=== PATIENT | male | born 1950 | race Caucasian/White ===

== ENCOUNTER → 2024-03-10 07:39 | Outpatient (REF) | payer MEDICARE, OTHER, SELFPAY | LOC: RAD 07:39 | PROVIDERS: ATTENDING PHYSICIAN Specialist; FAMILY PHYSICIAN Internal Medicine | DX: N28.89 Other specified disorders of kidney and ureter (principal) | CPT/HCPCS: 74170; Q9967 ==

== ENCOUNTER → 2024-05-26 12:31 | Outpatient (REF) | payer MEDICARE, OTHER, SELFPAY | LOC: RAD 12:31 | PROVIDERS: ATTENDING PHYSICIAN Dermatology; FAMILY PHYSICIAN Internal Medicine | DX: Z85.820 Personal history of malignant melanoma of skin (principal) | CPT/HCPCS: 71046 ==

== ENCOUNTER → 2024-06-04 10:15 | Outpatient (REF) | payer MEDICARE, OTHER, SELFPAY | LOC: HWRCS 10:15 | PROVIDERS: ATTENDING PHYSICIAN Internal Medicine Cardiovascular Disease; FAMILY PHYSICIAN Internal Medicine | DX: I51.89 Other ill-defined heart diseases (principal); I35.1 Nonrheumatic aortic (valve) insufficiency | CPT/HCPCS: 93306 ==

== ENCOUNTER → 2024-06-18 12:18 | Outpatient (REF) | payer MEDICARE, OTHER, SELFPAY | LOC: RAD 12:18 | PROVIDERS: ATTENDING PHYSICIAN Hospitalist; FAMILY PHYSICIAN Internal Medicine | DX: M25.561 Pain in right knee (principal) | CPT/HCPCS: 73560 ==

== ENCOUNTER → 2024-08-18 08:32 | Outpatient (REF) | payer MEDICARE, OTHER, SELFPAY | LOC: PAVMRI 08:32 | PROVIDERS: ATTENDING PHYSICIAN Internal Medicine Cardiovascular Disease; FAMILY PHYSICIAN Internal Medicine | DX: I51.7 Cardiomegaly (principal); I10 Essential (primary) hypertension; I25.10 Atherosclerotic heart disease of native coronary artery without angina pectoris; I35.1 Nonrheumatic aortic (valve) insufficiency | CPT/HCPCS: 75561; 75565; A9585 ==

== ENCOUNTER → 2024-08-31 11:17 | Outpatient (REF) | payer MEDICARE, OTHER, SELFPAY | LOC: RAD 11:17 | PROVIDERS: ATTENDING PHYSICIAN Nurse Practitioner | DX: J06.9 Acute upper respiratory infection, unspecified (principal) | CPT/HCPCS: 71046 ==

== ENCOUNTER → 2024-10-22 08:01 | Outpatient (REF) | payer MEDICARE, OTHER, SELFPAY | LOC: RAD 08:01 | PROVIDERS: ATTENDING PHYSICIAN Specialist; FAMILY PHYSICIAN Internal Medicine | DX: N28.89 Other specified disorders of kidney and ureter (principal) | CPT/HCPCS: 74170; Q9967 ==

== ENCOUNTER 2025-06-01 14:07 | Inpatient (IN) | payer MEDICARE, OTHER, SELFPAY ==
[2025-06-01] VITALS (17 sets, daily range): BP systolic 74–109; BP diastolic 54–66; BMI 33.1
[2025-06-01 12:20] LABS: Hematocrit 25.0 % (39.0-52.0); Hemoglobin 8.3 g/dL (13.0-18.0); Mean Corp Hgb Conc. 33.2 g/dL (33.0-37.0); Mean Corpuscular Volume 86.8 fL (80.0-94.0); Nucleated Red Blood Cells % 0 % (-); Platelet Count 152 10^3/uL (130-400); Red Cell Dist. Width 15.4 % (11.5-14.5)
[2025-06-01 12:27] LABS: INR 1.32; PT 16.7 Sec (11.4-14.6)
[2025-06-01 12:28] LABS: APTT 30.2 Sec (23.4-35.0)
--- NOTE | 2025-06-01 12:29 | ED.GENMED ---
History of Present Illness
General
Chief Complaint: Dizziness
Source: patient and spouse
Exam Limitations: none
Time Seen by Provider: 06/01/25 11:39
History of Present Illness
History of Present Illness:
Patient describing exertional right sided chest burning. Resolves when at rest. More recently in the last few days its even occurred at rest. Last episode was walking into the ER. Currently asymptomatic. Also noted a dark stool last evening.
No abdominal pain currently no chest pain or shortness of breath. History of hypertrophic cardiomyopathy.
Past History
Past History
ED Past Medical History: HTN, Other (Hypertrophic cardiomyopathy) and Other (LVH, kidney stones)
ED Past Surgical History: Urological
Patient has exhibited threatening behavior?: No
Social History
Tobacco: Former smoker
Alcohol: Occasional
Drug: None
Personal: Single
Review of Systems
Review of Systems
All Other Systems: Not applicable
Constitutional: Denies fever
ABD/GI: Denies abdominal pain or diarrhea
Phy Exam
Physical Exam
Physical Exam:
GENERAL: Alert and oriented in no apparent distress
EYE: Orbits normal.
NECK: Supple, no significant adenopathy.
ENT: Pharynx without erythema
CARDIAC: Regular rate and rhythm with harsh midsystolic murmur
LUNGS: Clear breath sounds,normal
ABDOMEN: Soft, without focal tenderness or distention. Rectal dark and test obviously positive
NEUROLOGICAL: Alert and oriented , grossly non-focal
SKIN: Warm and dry, no rash or lesion, no discoloration, skin intact.
MUSCULOSKELETAL: No edema,no deformity.Good color
PSYCH: Normal and appropriate interaction.
Course
Orders/Labs/Results
Orders:
Orders
06/01/25 Breakfast
Clear Liquid
At Your Request: Full Participation
Does patient need a safe tray?: No
Comment: no reds
06/01/25 11:31
EKG [Electrocardiogram (*1)] Urgent
Reason for Study: Vertigo / Dizzy
EKG- Treatment ONCE
06/01/25 11:56
Cardiac Monitoring- Treatment ONCE
IV Insert/Care/Rem.- Treatment PRN
Pulse Ox/cont/shift [RESP] Stat
Quantity: 1
06/01/25 11:57
Pantoprazole [Protonix IV] 40 mg IV NOW STA
06/01/25 12:12
Type+Screen Urgent
Complete Blood Count/With Diff Urgent
Comprehensive Metabolic Panel Urgent
Ferritin Urgent
Comment: ADD ON
Folate Urgent
Comment: ADD ON
Iron Urgent
Comment: ADD ON
PTT Urgent
Prothrombin Time Urgent
Total Iron Binding Urgent
Comment: ADD ON
Troponin I Urgent
Vitamin B12 Urgent
Comment: ADD ON
06/01/25 12:33
Pantoprazole [Protonix IV] 40 mg IV NOW STA
06/01/25 12:46
* Blood Bank Products Urgent
Blood Bank Products: *Packed RBC Leuko(PRBC's)
Quantity: 1
Transfuse Today: Yes
Reason: Bleeding
IV Insert/Care/Rem.- Treatment PRN
06/01/25 13:06
Admit/Transfer Patient As Directed
Co-Sign Provider:
Level of Care: Inpatient admission
Assign to:: IMU- Intermediate Care
Physician / Group: savi feliz
Diagnosis: symptomatic anemia GI bleed
Reason for Hospitalization: Gi bleed
Expected length of stay greater than two midnights?: Yes
ELOS- Estimated Length of Stay in days: 3
I certify the patient meets the requirements for IP care: Yes
06/01/25 13:07
PRN Pain Medication Management As Directed
May give lesser potent ordered pain med per pt: Yes
preference::
Protocol:: Medication orders for pain may be administered in a
manner that supports deferring to patient preference
when the pt is:
- Requesting an ordered lesser potent pain medication.
Least to most potent pain medications are defined
as: acetaminophen < NSAID < tramadol < opioids
(morphine, oxycodone, hydromorphone).
- Requesting a lesser dose of the same medication IF
ORDERED.
- Requesting a less intrusive route of administration
if both routes are prescribed by the provider (PO <
IV).
06/01/25 13:08
Code Status As Directed
Resuscitation Status: Full Code
Abnormal Lab Results
06/01/25
12:12
WBC 13.7 H 10^3/uL
(4.8-10.8)
RBC 2.88 L 10^6/uL
(4.70-6.10)
Hgb 8.3 L g/dL
(13.0-18.0)
Hct 25.0 L %
(39.0-52.0)
RDW 15.4 H %
(11.5-14.5)
MPV 11.0 H fL
(7.4-10.4)
Abs Immat Gran (auto) 0.1 H 10^3/uL
(0-0.05)
Absolute Neuts (auto) 11.6 H 10^3/uL
(1.4-6.5)
Absolute Lymphs (auto) 1.0 L 10^3/uL
(1.2-3.4)
Absolute Monos (auto) 0.8 H 10^3/uL
(0.1-0.6)
Immature Gran % 1.0 H %
(0-0.5)
Neutrophils % 84.6 H %
(42.2-75.2)
Lymphocytes % 7.6 L %
(20.5-51.1)
PT 16.7 H Sec
(11.4-14.6)
Potassium 3.4 L mmol/L
(3.5-5.1)
BUN 61 H mg/dl
(9-20)
Creatinine 1.4 H mg/dL
(0.7-1.3)
Glucose 110 H mg/dl
(70-99)
Troponin I 0.118 H* ng/ml
Total Protein 5.7 L g/dl
(6.3-8.2)
Crossmatch IS Only See Detail
06/01/25 12:12
06/01/25 12:12
Vital Signs
Initial and Last Documented VS:
Initial Vital Signs
Temp Pulse Resp BP Pulse Ox
97.5 F 85 18 93/64 100
06/01/25 11:30 06/01/25 11:30 06/01/25 11:30 06/01/25 11:30 06/01/25 11:30
Last Documented Vital Signs
Temp Pulse Resp BP Pulse Ox
97.4 F 84 18 107/64 100
06/01/25 14:50 06/01/25 14:50 06/01/25 14:50 06/01/25 14:50 06/01/25 12:32
MDM/Problems Addressed
Differential Diagnosis Includes:
Patient with heme positive stool. Dark. Likely upper GI bleed. Protonix ordered. Drop in hemoglobin. Likely his cardiac symptoms are related to this issue. Will type and screen and admit to medicine.
*Pulse Oximetry
SaO2: 100
Oxygen Mode of Delivery: Room air
Patient hypoxic: no
*EKG
Interpreted by ED Provider?: Yes
Interpretation: abnormal
Comparison EKG: changes noted
Heart Rate: 89
Rate: normal
Rhythm: sinus
[place]: normal axis
Interval: normal interval
QRS Pattern: left vent hypertrophy
Ischemia: non-specific ST changes
*Pulp Press Tender Interpretation
Rate: normal
Interpretation: normal
Heart Rate: 90
Rhythm: sinus
*Critical Care Note
Total Time (30-74mins, 75-104mins- exclusive of procedures): Not Applicable
Data Reviewed
Review of Other/Old Records Reveals: Labs and Testing
Update Note
Update Note:
Consent signed. Blood pressure 95. With patient being symptomatic with minimal symptoms drop in hemoglobin likely upper GI bleed will give a unit of blood now. Risk-benefit explained to patient and family
ED Attending Note
-
Portions of this chart may have been created with voice recognition software.� Occasional wrong word or��sound alike� substitutions may have occurred due to the inherent limitations of voice recognition software.
Discharge Plan
Departure
Patient Disposition: Admit
Date of Disposition: 06/01/25
Time of Disposition: 12:32
Presentation/result/management discussed w/ accepting MD/DO: Hospitalist
Discharge Problem:
Upper GI bleed, Symptomatic anemia, Hypertrophic cardiomyopathy, Possible unstable angina
Interventions
Interventions:
*Risk Screen - Suicide Last Done: 06/01/25 11:30
*General Assessment Last Done: 06/01/25 11:30
*ED COVID-19 Vaccine History Last Done: 06/01/25 11:30
*ED Influenza Vaccine History Last Done: 06/01/25 11:30
ED- Neurological Assessment Last Done: 06/01/25 12:15
--- NOTE | 2025-06-01 12:30 | HPS.HSE ---
Family Physician
-
Family Physician: Devyn Vicente
Chief Complaint
-
chest burning
dark stool
History of Present Illness
75-year-old male with past medical history for hypertension, kidney stones,cardiomyopathy presented to us with right sided chest burning for past few weeks with exertion, resolved with rest. for past few days, stated burning even with rest. last
evening, he was noted to have dark stool.he is on iron pill for past 90 days. he was nauseous. he felt lightheaded. he is constipated. denied diarrhea or abdominal pain. denied SAMANIEGO. denied sob. denied runny nose, congestion, cough. denied dysuria or
hematuria.
upon arrival noted to have hgb 8.3. IV PPI. transfusing with one unit of blood. admitting for further management.
Medical History
Past Medical History
Past Medical History: Reports Other
Additional Past Medical History:
RCD sleep apnea on CPAP, melanoma, hypertension, BPH, nephro lithiasis, right renal mass bladder perforation,
Past Surgical History: Reports Other
Additional Past Surgical History:
Lithotripsy, lipoma excision, inguinal hernia repair with mesh, TURP, dental implant
Social History
Tobacco: Non-smoker
Alcohol: Occasional
Personal:
Living: With Family
Family History
Family History: Not pertinent
Allergies / Home Medications
Allergies reflects when Allergies were last updated in [facility].
Home Medications with original date entered in [facility]
Allergy/Medication List:
Allergies
Allergy/AdvReac Type Severity Reaction Status Date / Time
iodine Allergy Itching Verified 06/01/25 11:32
hayfever Allergy itchy Uncoded 06/01/25 11:32
eyes,
sneezing
whole wheat Allergy throat Uncoded 06/01/25 11:32
closes,
trouble
breathing,
welts,
tiching
Home Medications
amlodipine 5 mg-olmesartan 20 mg tablet (Miguel) 1 tab PO DAILY 03/30/14
atorvastatin 20 mg tablet 25 mg PO DAILY 04/20/23
metoprolol tartrate 50 mg tablet 100 mg PO DAILY 04/20/23
olmesartan 20 mg tablet (Benicar) 20 mg PO DAILY 04/20/23
diltiazem HCl 180 mg capsule,extended release 24 hr (Cartia XT) 180 mg PO DAILY 06/01/25
ferrous sulfate 325 mg (65 mg iron) tablet (Iron (ferrous sulfate)) 325 mg PO DAILY 06/01/25
tirzepatide (weight loss) 7.5 mg/0.5 mL subcutaneous pen injector (Zepbound) 7.5 mg SC WEEKLY 06/01/25
Review of Systems
-
Constitutional: Reports No Symptoms
EENT: Reports No Symptoms
Respiratory: Reports No Symptoms
Cardiac: Reports Chest Pain
Abdomen/GI: Reports Other (dark stool)
: Reports No Symptoms
Musculoskeletal: Reports No Symptoms
Skin: Reports No Symptoms
Neurological: Reports No Symptoms
Endocrine: Reports No Symptoms
Hematologic/Lymphatic: Reports No Symptoms
Psych: Reports No Symptoms
Physical Exam
Vital Signs
Vital Signs
Temp Pulse Resp BP Pulse Ox
97.5 F 85 18 93/64 100
06/01/25 11:30 06/01/25 11:30 06/01/25 11:30 06/01/25 11:30 06/01/25 11:30
Physical Exam
General: Well Developed, Well Nourished and No Apparent Distress
HEENT: NormoCephalic, Moist mucous membranes and Atraumatic
Respiratory: Clear
Cardiac: S1/S2 and Regular Rhythm; No Murmur or Rub
GI: Soft, Non Tender, Non Distended and Normal Bowel Sounds; No Organomegaly
Rectal: Deferred by Provider
Musculoskeletal: No Clubbing, No Cyanosis and No Edema
Skin: No Rash
Neuro: AO x 3 and Nonfocal/grossly intact
Psych: Calm
Laboratory Results
-
06/01/25 12:12
Laboratory Results
PT 16.7 Sec (11.4-14.6) H 06/01/25 12:12
INR 1.32 06/01/25 12:12
APTT 30.2 Sec (23.4-35.0) 06/01/25 12:12
Data Reviewed
-
Lab Data: Labs Reviewed by me
Impression/Plan
-
# symptomatic Acute blood loss anemia secondary to GI bleed
-hgb 8.3, trend hgb
-IV PPI
-clear liquid diet
-GI consult
#exertional angina r/o NSTEMI
-trop 0.118
-EKG with SINUS RHYTHM WITH PREMATURE ATRIAL COMPLEXES
LEFT VENTRICULAR HYPERTROPHY WITH REPOLARIZATION ABNORMALITY ( R in aVL )
BORDERLINE QT INTERVAL
ANTEROLATERAL INFARCT noted prior
-continue to trend trop
-cardiology consulted
#hypokalemia
-k 3.4, oral kcl
-BMP in am
#NORM likely hypovolemic
-cr 1.4,
-BMP in am
# leukocytosis likely stress reaction
-patient is afebrile, ctm
#HLD
#essential HTN
#cardiomyopathy
-cartia, metoprolol continued with hold parameter
-hold Benicar
#DVT prophylaxis
-scd
#CODe status
-full code
--- NOTE | 2025-06-01 12:31 | W.PN.UPDATE ---
Addendum entered and electronically signed by Fletcher Mathias MD 06/01/25 13:08:
Laboratory Tests
06/01/25
12:12
INR 1.32
Potassium 3.4 L
BUN 61 H
Creatinine 1.4 H
eGFR 52.09
Troponin I 0.118 H*
Elevated TPNI - NIMI vs NSTEMI
Renal insufficiency
- CBC card consult
- Holding ASA
- LOC - upgrade to IMU
Original Note:
Update Note
Progress Note Update
This note serves as an addendum to the H&P by college basketball coach JULIUS�
Missy SHU�
HPI�
75M Former smoker, occasional ETOH, HX HOCM, HTN seen at ER:
- exertional right sided chest burning resolves when at rest.
- More recently in the last few days its even occurred at rest. Last episode was walking into the ER.
- Currently asymptomatic.
- noted a dark stool last evening.
- No abdominal pain currently no chest pain or shortness of breath.
Rectal dark and test obviously positive
PHX; see above
Relevant VS
Temp Pulse Resp BP Pulse Ox
97.5 F 85 18 93/64 100
06/01/25 11:30 06/01/25 11:30 06/01/25 11:30 06/01/25 11:30 06/01/25 12:32
PE
Hypotensive
Gen: NAD
HEENT: anicteric
Neck: supple
Lungs: CTA
Cor: RRR
Abdomen:�soft benign
Rectal dark and test obviously positive by ER attd
COURSE INSTRUCTOR: NFND
MS: no edema
Relevant Data
04/20/23 06/01/25
21:41 12:12
WBC 7.7 13.7 H
Hgb 14.3 8.3 L
MCV 86.8
Plt Count 159 152
PENDING TPNI and CMP upon ER disposition
EKG
SINUS RHYTHM WITH PREMATURE ATRIAL COMPLEXES
LEFT VENTRICULAR HYPERTROPHY WITH REPOLARIZATION ABNORMALITY ( R in aVL )
BORDERLINE QT INTERVAL
ANTEROLATERAL INFARCT noted prior
ABNORMAL ECG
WHEN COMPARED WITH ECG OF 21-Apr-2023 01:01,
PREMATURE ATRIAL COMPLEXES ARE NOW PRESENT
T WAVE INVERSION NOW EVIDENT IN LATERAL LEADS
Confirmed by MD REJI, KATY ([id number]) on 06/01/2025 12:04:45 PM
06/04/24 TTE
1. Mild left ventricular hypertrophy with septal hypertrophy up to 2.1 cm.
Ejection fraction 60-65%. Resting LVOT gradient of 11 mmHg increasing to 54 mmHg with Valsalva
2. Thickened mitral leaflets, mild mitral regurgitation and dilated left atrium
3. Mild aortic stenosis, peak/mean gradient 34/19 mmHg, aortic valve area 1.9 cm2, mild to moderate aortic regurgitation
4. Normal right heart with pulmonary artery systolic pressure 27 mmHg
5. Mildly dilated aortic root and ascending aorta, 4.3 and 4.0 cm
No prior hospitalist admission:
ASSESSMENT & PLAN
Exertional Chest burning received with rest
In association with acute anemia - possible stomatic ??
Underlying mil LVH with septal hypertrophy up to 2.1 cm. LVEF @ resting LVOT gradient of 11 mmHg increasing to 54 mmHg with Valsalva - HOCM ?
- Eval anemia and correct to aim Hgb > 8.5
- Pending TPNI and trend TPNI
- Serial EKG
- c/w Metoprolol - hold id SBP < 110
- Card consult
Acute anemia suspect ACBLA due to HoB POS dark stool GIB
Hypotension
- Hold anti HTN ( Amlodipine, Olmesartan)
- NPO - ok for Meds and sips
- T& C
- 1 unit of PRBC
- PPI gtt
- GI consulted
Hypotension
Benign HTN
- Hold anti HTN ( Amlodipine, Olmesartan) due to SBP < 100
HLD
- on Atorvastatin
DVT Px:SCD
Full code
IP TLM
[2025-06-01 12:42] LABS: ALT (SGPT) 16 U/L (0-50); AST (SGOT) 20 U/L (17-59); Albumin 3.5 g/dl (3.5-5.0); Alkaline Phosphatase 56 U/L (38-126); Blood Urea Nitrogen 61 mg/dl (9-20); Calcium 9.8 mg/dl (8.4-10.2); Carbon Dioxide 24 mmol/L (22-30); Chloride 107 mmol/L (98-107); Glucose 110 mg/dl (70-99); Potassium 3.4 mmol/L (3.5-5.1); Sodium 137 mmol/L (135-145); Total Protein 5.7 g/dl (6.3-8.2); eGFR 52.09
[2025-06-01 12:49] LABS: Troponin I 0.118 ng/ml
[2025-06-01] MEDS: PROTONIX IV 40 MG IV ×2 (13:14→13:15)
--- NOTE | 2025-06-01 13:58 | CON.GI ---
Addendum entered and electronically signed by Trupti Nava MD 06/01/25 19:06:
I saw and examined the patient.
The SPRINKLER WORKER's note was reviewed and I agree with the note.
Comment: This is a pleasant 75-year-old male with significant past medical history as listed below and also has significant cardiac history of cardiomyopathy, asymmetric septal hypertrophy, LV outflow obstruction, aortic stenosis, hypertension,
hyperlipidemia also has history of melanoma, bladder perforation, renal mass, colon polyps, kidney stones, WIL presented to the emergency room with symptom of dark stool yesterday with dizziness. He usually sees technology support analyst at [facility] and had a
cardiac catheterization in April and because of his septal hypertrophy he does have intermittent episodes of dizziness. He says that he saw his flare breaker about 3 months ago and was told his hemoglobin was 10 and he also saw his PCP and was
started on oral iron and was referred to GI but he has not had a chance to follow-up yet. He says he had a hemoglobin repeated 05/20 and was 11.5 per patient and on admission it is 8.3 with an elevated BUN of 61. He did receive 1 unit of packed red
blood cells since admission. He also had mildly elevated troponins and cardiology has been consulted and rectal in the emergency room was dark stool heme positive. He currently denies any abdominal pain. He also started Zepbound about 3 months ago
and lost about 17 pounds on it. He currently denies any chest pain. His last colonoscopy was in [address] Francis and was noted to have diverticulosis and was otherwise normal he never had an endoscopy in the past.
Assessment and plan iron deficiency anemia initially diagnosed about 3 months ago which responded to oral iron but now has acute posthemorrhagic anemia with hemoglobin of 8.3 with an episode of melena overnight. He has not had any further episodes
of melena. Discussed with Dr. Lopez on echocardiogram here she noted that he has moderate MR and they are considering doing a DIPAK tomorrow so will hold on endoscopy till he is optimized and if the endoscopy is negative then will need repeat
colonoscopy and capsule endoscopy. Most likely source of bleeding could be angioectasias in the small bowel or colon, less likely neoplasm vs esophagitis or PUD. Continue PPI, trend HB
Original Note:
Consultation
-
Date/Time Consultation Requested: 06/01/25 1230
Date/Time Consultation Performed: 06/01/25 1330
Requesting Provider: BORA Barbosa
Performing Provider: BORA Argueta, Trupti Nava MD
Reason for Consultation: GI bleeding
Medical History
Chief Complaint / HPI
History of Present Illness:
PT is a 75yo with hx melanoma, bladder perforation, renal mass, HTN, cataracts, diverticulosis, BPH, colon polyps, renal stones, PNA, syncope, sleep apnea, cardiomyopathy with onset of chest pain with exertion and severe fatigue. He also admits to
with dark stools day prior to admission and drop in hbg several months ago with iron use for last 3 months. He has also had progressive chest burning and lightheadedness. He also related nausea and constipation which is attributes to recent
Zepbound use. In review with patient he is noted with prior hbg in January 10.2, 05/20 11.5, then 8.3 on admission with BUN 61. Pt also noted with mild troponin increase with cardiology consult pending. Rectal in ER with dark heme + stool.
Pt currently denies odynophagia, dysphagia, vomiting, abdominal pain, diarrhea, or red stools. Hx Colonoscopy for hx colon polyps last 06/01/25 Francis - Diverticulosis in the sigmoid colon. no prior EGD.
Past Medical History
Past Medical History: Cancer (melanoma ), HTN and Other (bladder perforation with catheter, renal mass, cardiomyopathy, cataracts, diverticulosis, BPH, colon polyps, renal stones, PNA, syncope, sleep apnea )
Past Surgical History: Urological (lithotripsy , TURP) and Other (pilonidal cyst surgery, lipoma excision, inguinal hernia repair lap with mesh, dental implants )
Social History
Tobacco: Former Smoker (distant past )
Alcohol: Occasional
Drug: None
Personal:
Living: With Family
Employment: Employed
Family History
Family History: Other (uncle with PUD, mother with breast Ca, father with brain CA)
Allergies / Home Medications
Allergy/AdvReac Type Severity Reaction Status Date / Time
iodine Allergy Itching Verified 06/01/25 11:32
hayfever Allergy itchy Uncoded 06/01/25 11:32
eyes,
sneezing
whole wheat Allergy throat Uncoded 06/01/25 11:32
closes,
trouble
breathing,
welts,
tiching
�Medication �Instructions �Recorded
atorvastatin 20 mg tablet 40 mg PO QPM 04/20/23
olmesartan 20 mg tablet (Benicar) 20 mg PO QPM 04/20/23
aspirin 81 mg tablet,delayed 81 mg PO HS 06/01/25
release
diltiazem HCl 180 mg 180 mg PO HS 06/01/25
capsule,extended release 24 hr
(Cartia XT)
docusate sodium 100 mg capsule 100 mg PO BID 06/01/25
(Colace)
ferrous sulfate 325 mg (65 mg 325 mg PO DAILY 06/01/25
iron) tablet (Iron (ferrous
sulfate))
metoprolol succinate 100 mg 100 mg PO DAILY 06/01/25
tablet,extended release 24 hr
(Toprol XL)
tirzepatide (weight loss) 7.5 7.5 mg SC FR@1900 06/01/25
mg/0.5 mL subcutaneous pen
injector (Zepbound)
Review of Systems
-
History Source: Patient and Family
Constitutional: Reports Fatigue
EENT: Reports No Symptoms
Cardiac: Reports Chest Pain and Syncope (near syncope )
Abdomen/GI: Reports Nausea and Constipated
: Reports No Symptoms
Musculoskeletal: Reports No Symptoms
Skin: Reports No Symptoms
Neurological: Reports Dizzy and Weakness
Hematologic/Lymphatic: Reports Bleeding (dark stools)
Vital Signs
Temp Pulse Resp BP Pulse Ox
97.6 F 79 19 100/65 100
06/01/25 13:53 06/01/25 13:53 06/01/25 13:53 06/01/25 13:53 06/01/25 12:32
Physical Exam
Exam
General: Well Developed, Well Nourished and No Apparent Distress
HEENT: Normocephalic and Anicteric
Respiratory: Clear
Cardiac: Regular Rhythm and Murmur
GI: Soft, Non Tender and Non Distended
Musculoskeletal: No Clubbing and No Cyanosis
Skin: Warm and Dry
Neuro: Awake, Alert and AO x 3
Psych: Calm
Results
WBC 13.7 10^3/uL (4.8-10.8) H 06/01/25 12:12
Hgb 8.3 g/dL (13.0-18.0) L 06/01/25 12:12
Hct 25.0 % (39.0-52.0) L 06/01/25 12:12
MCV 86.8 fL (80.0-94.0) 06/01/25 12:12
Plt Count 152 10^3/uL (130-400) 06/01/25 12:12
Absolute Neuts (auto) 11.6 10^3/uL (1.4-6.5) H 06/01/25 12:12
PT 16.7 Sec (11.4-14.6) H 06/01/25 12:12
INR 1.32 06/01/25 12:12
APTT 30.2 Sec (23.4-35.0) 06/01/25 12:12
Sodium 137 mmol/L (135-145) 06/01/25 12:12
Potassium 3.4 mmol/L (3.5-5.1) L 06/01/25 12:12
Chloride 107 mmol/L (98-107) 06/01/25 12:12
Carbon Dioxide 24 mmol/L (22-30) 06/01/25 12:12
BUN 61 mg/dl (9-20) H 06/01/25 12:12
Creatinine 1.4 mg/dL (0.7-1.3) H 06/01/25 12:12
Calcium 9.8 mg/dl (8.4-10.2) 06/01/25 12:12
Total Bilirubin 0.7 mg/dl (0.2-1.3) 06/01/25 12:12
AST 20 U/L (17-59) 06/01/25 12:12
ALT 16 U/L (0-50) 06/01/25 12:12
Alkaline Phosphatase 56 U/L (38-126) 06/01/25 12:12
Diagnostic Image Results:
10/22/24 CT Abdomen W/wo Iv Contrast
Stable lateral lower pole left renal hypodense mass measuring 2.4 x 1.5 cm. Additional left renal low-attenuation/cystic lesions are stable.
Stable 10 mm medial lower pole low-attenuation right renal mass. Slightly more inferiorly from this, there is the suggestion of an 8 mm low-attenuation nodule not definitely seen previously. Recommend follow-up in 6 months. Otherwise, additional
tiny low-attenuation/cystic structures appear stable.
No renal or ureteral calculus. No hydronephrosis or obstructive uropathy.
Small stable low-attenuation adrenal nodules, most consistent with benign adenomas.
Minor colonic diverticulosis. No evidence of acute diverticulitis.
Prior GI Procedures:
EGD: none
Colonoscopy: 06/01/25 Francis - Diverticulosis in the sigmoid colon.
- The examination was otherwise normal.
- No specimens collected.
Assessment / Plan
-
PT is a 75yo with hx melanoma, bladder perforation, renal mass, HTN, cataracts, diverticulosis, BPH, colon polyps, renal stones, PNA, syncope, sleep apnea, cardiomyopathy with onset of chest pain with exertion and severe fatigue. He also admits to
with dark stools day prior to admission and drop in hbg several months ago with iron use for last 3 months. He has also had progressive chest burning and lightheadedness. He also related nausea and constipation which is attributes to recent
Zepbound use. In review with patient he is noted with prior hbg in February 09.2, 05/20 11.5, then 8.3 on admission with BUN 61. Pt also noted with mild troponin increase with cardiology consult pending. Rectal in ER with heme + dark stools. Hx
Colonoscopy for hx colon polyps last 06/01/25 Francis - Diverticulosis in the sigmoid colon. no prior EGD.
-anemia with elevated BUN concern for UGI bleed
-chest burning
-dark stool
-exertional chest pain
-hypokalemia
-on chronic Zepbound therapy
other med problems:
- cardiomyopathy
-melanoma
-bladder perforation
- renal mass
- HTN
- cataracts
-diverticulosis
-BPH
-colon polyps
- renal stones
- PNA
- syncope
-sleep apnea
PLAN:
etiology of anemia with dark heme + stools related to upper GI source with elevated BUN and chest burning, esophageal ulcer, esophagitis, PUD, ectasia, mass vs lower or SB bleeding
will need EGD then colon
await cards eval for optimization with mild trop increase and complaint of exertional chest pain
ok for clears diet
trend hbg and stool record
add iron studies
currently for transfusion
cont protonix daily
updated family at bedside
-
-
Thank you for consultation and allowing me to participate in the patient's care. Please call the livestock commission agent GI physician during the after hours with any questions or concerns.
--- NOTE | 2025-06-01 15:13 | EDCM ---
CM reviewed chart and met with pt bedside in ED. Lives with his SO Rosy in 2 story home, 2 JOJO, first floor half bath, full flight to second floor bedroom and full bath.
Independent in ADLs, personal care and ambulation at baseline. no assistive devices, still works and drives.
Has CPAP, no other DME.
Confirms prescription coverage.
No hx VN or SNF.
PCP: Devyn Vicente
Pharmacy: [facility]
Anticipate discharge home, CM will continue to follow for all discharge planning needs.
--- NOTE | 2025-06-01 15:25 | CON.CAR ---
Addendum entered and electronically signed by Katherin Lopez DO 06/02/25 06:47:
Additional history:
-Patient was started on Zepbound in January-March and has lost 16 pounds. He self discontinued his nocturnal CPAP almost 2 months ago.
-Last dose of Zepbound was May 28
-Patient had dental work beginning of May
Addendum entered and electronically signed by Katherin Lopez DO 06/01/25 20:00:
I saw and examined the patient.
The [employer] Officer's note was reviewed and I agree with the note.
Comment: Patient was seen and examined in IMU [id number] after he presented to [facility] emergency department complaining of dark stool with several weeks of right-sided chest burning, progressive dyspnea on exertion and orthopnea. He is on
aspirin 81 mg daily but no other antiplatelet or anticoagulation. In the emergency department, patient was found to have hemoglobin of 8.3 g/dL with leukocytosis 13.7. Platelets 152,000. 84.6% neutrophils. PT/INR 16.7/1.32. Sodium 137,
potassium 3.4, BUN and creatinine 61/1.4. Glucose random only 110. Calcium 9.8. Iron 195, TIBC 326, percent sat 59. Ferritin 15.2. LFTs within normal limits. Initial cardiac troponin 0.118 which increased to 0.180. B12 and folate within
normal limits. Twelve-lead EKG personally reviewed: Sinus rhythm with PACs and LVH. QTc 481 ms. Heme positive stool by ER documentation. Patient has received 1 unit packed red blood cells and started on IV Protonix.
.
Ishaan is a 75-year-old gentleman with significant asymmetric septal hypertrophy/HOCM with severe dynamic LVOT obstruction associated with SHU and previous echocardiograms noting mild mitral regurgitation, mild aortic stenosis and preserved
biventricular systolic function. He is under comanagement of our office with Dr. Green and was recently evaluated with Dr. Adela Pinzon at [facility]. As part of his evaluation at [facility] in April, he had a
diagnosed cardiac catheterization 04/11/2025 as part of evaluation for candidacy of septal ablation. Patient's available records were reviewed and I also discussed over the telephone with Dr. Green and Dr. Adela Pinzon.
.
His cardiac catheterization found patent left main. LAD with 3 medium size diagonal branches and multiple septal branches that wraps around the ventricular apex. There is a 60% focal stenosis in the LAD at the 1 that was IFR positive at 0.84.
RCA/PDA/PL with minor luminal irregularities. Circumflex with 2 large OM's and luminal irregularities. Mildly elevated biventricular filling pressure, RA 10 mmHg, pulmonary capillary wedge pressure 17, LVEDP 22 mmHg with preserved cardiac output
and index. Cardiac output 5.26 L/min, cardiac index by Jelani 2.4 L/min/m�. Mild aortic stenosis with aortic valve mean gradient 8.65 mmHg. No shunts. Mean LVOT 2 gradient 82 mmHg with positive Brockenbrough Quintero Braunwald sign suggestive of
severe dynamic LVOT obstruction. SVR 1217, PVR 0.95 Arroyo units. Prior cardiac MRI 08/20/2024 showed asymmetric left ventricular hypertrophy involving the septum with EF 58%. Mild to moderate AR. Mild eccentric MR. No abnormal enhancement. A
2D echocardiogram was also done recently at the [facility] March 01, 2025 although records are not available for my review�according to Dr. Adela Pinzon he had preserved ejection fraction with severe asymmetric septal hypertrophy with
LVOT obstruction which was dynamic. Mild MR with SHU. Mild . Mild TR. Will obtain records. His preprocedure hemoglobin on April 01, 2025 was 13.7 g/dL with platelets 163,000.
.
He is presently relatively stable with heart rates sinus rhythm in the 80s and blood pressures with maps greater than 65. Telemetry shows PACs but no tacky or bradycardia arrhythmias. Oxygen saturation 97% on room air. He denies fevers. He is
compliant with his medications which includes diltiazem CD1 80 mg nightly, metoprolol succinate 100 mg daily. Olmesartan 20 mg every afternoon. Atorvastatin 40 mg every afternoon. Aspirin 81 mg every afternoon, ferrous sulfate 325 mg daily. He
is also on Zepbound 7.5 mg which he takes on Fridays. He is not on diuretics.
.
His 2D echocardiogram done earlier today was personally reviewed and unfortunately technically difficult. He has normal LV chamber size with moderate concentric left ventricular hypertrophy (1.2cm) and severe asymmetric subaortic septal
hypertrophy(2.3cm). Left ventricular systolic function appears preserved with LV ejection fraction visually estimated greater than 70%. Grade 2 diastolic dysfunction. Aortic valve not well-visualized with leaflet and annular thickening and
calcifications. Unfortunately, aortic valve gradients not obtained due to contamination of jet by mitral regurgitation. Mild�moderate aortic insufficiency. Aortic root dilated at the sinus of Valsalva 4.1 cm, sinotubular junction 3.3 cm.
Proximal ascending aorta 3.9 cm. Normal RV size and systolic function which appears perhaps underfilled. RVS velocity 11.4 cm/s. Normal right atrial dimensions. Tricuspid valve opens normally without prolapse and mild TR. Estimated pulmonary
artery systolic pressure 35-38 mmHg assuming a right atrial pressure of 5 to 8 mmHg. Mitral valve leaflets are thickened with mitral annular calcification. There is significant systolic anterior motion of the mitral valve into the LVOT. There is
an echodensity in the left atrium attached to the anterior mitral leaflet, possible torn chordae tendineae but cannot exclude vegetation. Severe/torrential mitral regurgitation which fills the left atrium. Left atrium is normal in size. Unable to
obtain accurate LVOT gradients due to severe mitral regurgitation. No pericardial effusion
General: Comfortable. No conversational dyspnea. On room air. AAOx3
HEENT:mmm
Respiratory: Bronchovesicular breath sounds, clear with no wheezes or rhonchi. No crackles
Cardiac:Regular. Positive S1-S2. Harsh 3 /6 systolic murmur throughout precordium
GI: Soft, Non Tender, Non Distended and Normal Bowel Sounds
Musculoskeletal:Warm distal extremities. No edema
Skin: No rash
Plan:
Medically complex 75-year-old gentleman with HOCM/asymmetric septal hypertrophy with severe dynamic LVOT obstruction with SHU, single-vessel coronary artery disease with IFR positive LAD lesion near D1 on cardiac catheterization 04/11/2025,
hypertension, mild aortic stenosis, mild mitral regurgitation, dyslipidemia, sleep apnea with nocturnal hypoxemia, obesity, and prior tobacco dependence who presents with symptoms of heart failure and mildly abnormal cardiac troponins found to have
acute iron deficient anemia with dark stools heme positive by ER documentation concerning for upper GI bleed and echocardiogram with new finding of severe mitral regurgitation with significant SHU.
Acute anemia with reports of dark stool, heme positive in the ED concerning for upper GI bleed
-History of iron deficiency anemia previously seen by Dr. Francis as an outpatient with a colonoscopy in 2020 showing diverticulosis and more recently seen in the office by Dr. Ford with plans for colonoscopy not yet completed. He has never had an
upper endoscopy.
- Hb 13.7g/dL 04/01 per BREONNA
-Aspirin discontinued
-GI consulted and discussed case.
-IV PPI
-Follow hemoglobin closely and transfuse as needed. Patient has already received 1 unit packed red blood cells
-N.p.o. after midnight and will discuss timing of procedures including EGD pending clinical stability
Acute severe mitral regurgitation with SHU and known HOCM with asymmetric septal hypertrophy with possible flail chordae versus vegetation on the anterior leaflet.
- Continue beta-caden and calcium channel caden
- Monitor closely for volume overload and decompensation
- Transfuse as needed.
- Blood cultures x 2 sets 30 minutes of ordered
- Discussed case with patient's usual reports analysis manager, Dr. Yeung and Dr. Pinzon. Also reviewed case and TTE with Dr. Bassem Asif.
- Will eventually need DIPAK after GI clears esophagus/stomach with concerns for upper GI bleed.
- Patient had previously been evaluated at [facility] for for possible septal ablation versus myomectomy but was reportedly asymptomatic. Pending DIPAK and clinical course may ultimately need surgical treatment of LVOT
obstruction/HCM, repair of mitral valve and revascularization of LAD.
Single-vessel coronary artery disease by cardiac catheterization at [facility] 04/11/2025 with a 60% lesion at the bifurcation of the LAD to D1 that was IFR positive. Mildly abnormal troponins in the setting of symptomatic anemia and
severe MR Likely represents demand ischemia.
-Twelve-lead EKG without ischemic changes.
-Trend troponins to peak
Will follow with you.
Original Note:
Consultation
Consultation Request
Date/Time Consultation Performed: 06/01/25
Requesting Provider: Dr. Mathias
Performing Provider: Judy Vazquez PA-C for Dr. Lopez
Reason for Consultation: CP
Medical History
-
Chief Complaint: CP, dark stool
History of Present Illness:
Patient is a 75-year-old male with past medical history of asymmetric septal hypertrophy, LV outflow obstruction, aortic stenosis, hypertension, hyperlipidemia who presented to [facility] ER due to complaints of dark stool which started last night. In
addition he reports he has had right sided chest burning for several weeks, mostly with exertion and improving with rest, however also with lying down and improved with sitting up. In addition he has noted dizziness which has been progressive over
the last several weeks as well. He states he is followed at [facility] for hoc with Dr. Pinzon and recently underwent cardiac catheterization 04/11/2025 to evaluate his candidacy for alcohol septal ablation versus open myomectomy. He reports he did not
require any interventions. He has been taking aspirin 81 mg daily. He denies abdominal pain. He has been taking 65 mg of supplemental iron daily, however reports he has skipped some doses due to this causing constipation. On arrival to ER
hemoglobin 8.3, down from prior. Last colonoscopy was 3 years ago and he stated 'looked good'.
PMH:
Asymmetric septal hypertrophy
LV outflow obstruction
Mild aortic stenosis
Hypertension
Hyperlipidemia
BPH
Obesity
Past Medical History
Past Medical History: Other (in HPI)
Social History
Tobacco: Former Smoker
Alcohol: Occasional
Personal: Other (significant other)
Living: With Family
Employment: Employed
Family History
Family History: Cancer
Allergies / Home Medications
Allergy/AdvReac Type Severity Reaction Status Date / Time
iodine Allergy Itching Verified 06/01/25 11:32
hayfever Allergy itchy Uncoded 06/01/25 11:32
eyes,
sneezing
whole wheat Allergy throat Uncoded 06/01/25 11:32
closes,
trouble
breathing,
welts,
tiching
�Medication �Instructions �Recorded �Confirmed �Type
atorvastatin 20 mg tablet 40 mg PO QPM 04/20/23 06/01/25 History
olmesartan 20 mg tablet (Benicar) 20 mg PO QPM 04/20/23 06/01/25 History
aspirin 81 mg tablet,delayed 81 mg PO HS 06/01/25 06/01/25 History
release
diltiazem HCl 180 mg 180 mg PO HS 06/01/25 06/01/25 History
capsule,extended release 24 hr
(Cartia XT)
docusate sodium 100 mg capsule 100 mg PO BID 06/01/25 06/01/25 History
(Colace)
ferrous sulfate 325 mg (65 mg 325 mg PO DAILY 06/01/25 06/01/25 History
iron) tablet (Iron (ferrous
sulfate))
metoprolol succinate 100 mg 100 mg PO DAILY 06/01/25 06/01/25 History
tablet,extended release 24 hr
(Toprol XL)
tirzepatide (weight loss) 7.5 7.5 mg SC FR@1900 06/01/25 06/01/25 History
mg/0.5 mL subcutaneous pen
injector (Zepbound)
Review of Systems
-
History Source: Patient and Family
All other systems: Negative unless noted
Physical Exam
Vital Signs
Temp Pulse Resp BP Pulse Ox
97.4 F 81 22 96/65 98
06/01/25 14:50 06/01/25 15:15 06/01/25 15:15 06/01/25 15:00 06/01/25 15:15
Lab Results
06/01/25 12:12
06/01/25 12:12
Troponin I 0.118 ng/ml H* 06/01/25 12:12
Physical Exam
General: No Apparent Distress and Comfortable
HEENT: Normocephalic, Anicteric and Moist Mucous Membranes
Respiratory: Clear and Non Labored Respirations
Cardiac: S1/S2, Regular Rhythm and Murmur
GI: Soft, Non Tender, Non Distended and Normal Bowel Sounds
Musculoskeletal: No Clubbing, No Cyanosis and No Edema
Skin: Warm and Dry
Neuro: AO x 3
Impression / Plan
-
Primary Street Sweeper: Dr. Yanez
Assessment:
Presentation with dark stool
Acute anemia, suspected UGI bleed
R sided chest pain
Elevated troponin
Asymmetric septal hypertrophy
LV outflow obstruction
Mild aortic stenosis
Hypertension
Hyperlipidemia
BPH
Obesity
Adrenal adenoma
Echo 06/04/2024: Mild LVH with septal hypertrophy up to 2.1 cm, EF 60 to 65%, resting LVOT gradient of 11 mmHg increasing to 54 mmHg with Valsalva, mild MR, dilated LA, mild with peak/mean gradient 34/19 mmHg, mild to moderate AR, normal right
heart with PAP 27 mmHg, mildly dilated aortic root and ascending aorta
Cardiac cath 04/12/25 at [facility]: No evidence of resting pulmonary hypertension, evidence of mild AAS with mean gradient 9 mmHg, mean gradient of 82 mmHg across LVOT suggestive of severe LV outflow tract obstruction, LAD with 3 medium sized diagonal
branches with 60% focal stenosis at D1. iFR of lesion 0.84 which by report was felt to be hemodynamically significant, however no intervention performed
Plan:
-Patient presents with dark stool starting yesterday as well as dizziness and R sided chest discomfort which appears to be becoming more frequent in the last several weeks
-GI following as concern for UGI bleed. hgb 8.3
-on asa 81mg daily as OP
-trop 0.118. currently CP free
-EKG SR with LVH and possible prior anterolateral infarct
-on review of cath report from [facility] dated 04/12/25, noted to have a 60% D1 lesion which was felt to be hemodynamically significant however was not intervened upon. there appears to be discrepancy between patient's understanding of cath results and
cath report findings as patient seems to say lesion was felt to be insignificant. no plan was listed in cath report. cath was completed to assess candidacy for alcohol septal ablation or myomectomy.
-at this point ok to proceed with GI evaluation as planned, at higher cardiac risk due to above however not prohibitive.
-will plan to discuss further cardiac treatment and timing pending results of GI evaluation
-continue OP toprol, lipitor as able. hold OP diltiazem and benicar for now
-consider repeat echo, last from 06/2024 as above
-on zepbound as OP
-d/w patient and significant other at bedside. d/w GI CREDIT CARD ANALYST
Data Reviewed
-
EKG: Tracing Personally Visualized and interpreted
Medical Tests (Nuc Med, Echo etc): Report Reviewed by me
Labs: Labs Reviewed by me
Old Records: Reviewed
[2025-06-01 15:40] LABS: Iron 195 ug/dl (49-181)
[2025-06-01 15:49] LABS: Total Iron Binding Capacity 326 ug/dl (261-462)
[2025-06-01 16:34] LABS: Hematocrit 26.9 % (39.0-52.0); Hemoglobin 8.8 g/dL (13.0-18.0)
[2025-06-01 16:37] LABS: Ferritin 15.2 ng/ml (17.9-464.0)
[2025-06-01 16:56] LABS: Troponin I 0.180 ng/ml
[2025-06-01 17:09] LABS: Folate 5.5 ng/ml (2.76-20); Vitamin B12 298 pg/ml (239-931)
--- NOTE | 2025-06-01 17:27 | PTCARENOTE ---
Rec'd pt on admission from ED. Able to stand to pivot to bed. no complaints of chest pain or abdominal pain. Educated pt on fall risk and to call for assistance as GI bleed patients are at high risk for syncopal episodes. Pt agrees. Vital signs
within normal limits. Assessment completed. oriented to unit.
[2025-06-01] MEDS: LIPITOR 40 MG PO (17:53)
[2025-06-01 21:35] LABS: Troponin I 0.288 ng/ml
[2025-06-01 23:15] LABS: Hematocrit 25.1 % (39.0-52.0); Hemoglobin 8.3 g/dL (13.0-18.0)
[2025-06-01 23:37] LABS: Troponin I 0.273 ng/ml
[2025-06-02] VITALS (24 sets, daily range): BP systolic 66–122; BP diastolic 57–86; PULSE 95–104; BMI 33.0
--- NOTE | 2025-06-02 01:54 | PTCARENOTE ---
Assumed care of patient from dayshift RN. Pt aaox3. SpO2 100% on RA. Sinus arrhythmia with PACs on the monitor. Vitals and assessment as documented. Answered all patients questions in regards to EKGs and lab work (specifically trending troponin). Pt
currently resting in bed asleep with call franks in reach.
[2025-06-02 03:43] LABS: Hematocrit 24.2 % (39.0-52.0); Hemoglobin 7.9 g/dL (13.0-18.0); Mean Corp Hgb Conc. 32.6 g/dL (33.0-37.0); Mean Corpuscular Volume 85.2 fL (80.0-94.0); Platelet Count 127 10^3/uL (130-400); Red Cell Dist. Width 15.8 % (11.5-14.5)
--- NOTE | 2025-06-02 03:57 | W.PN.UPDATE ---
Update Note
Progress Note Update
4 am, Hgb 7.9. Per notes, transfuse to keep Hgb > 8.5. Ordered 1 unit PRBC's to transfuse now.
--- NOTE | 2025-06-02 04:14 | PTCARENOTE ---
Hgb trending down. Most recent Hgb 7.9 and BORA Spear made aware. Rx received for 1u PRBC.
[2025-06-02 04:30] LABS: Blood Urea Nitrogen 57 mg/dl (9-20); Calcium 8.9 mg/dl (8.4-10.2); Carbon Dioxide 23 mmol/L (22-30); Chloride 110 mmol/L (98-107); Estimated Creatinine Clearance 53 ml/min; Glucose 102 mg/dl (70-99); HDL Cholesterol 24 mg/dl; LDL Cholesterol, Calculated 41 mg/dl; Potassium 3.5 mmol/L (3.5-5.1); Sodium 138 mmol/L (135-145); Very Low Density Lipoprotein 36 mg/dl (0-30); eGFR 52.09
[2025-06-02 08:40] LABS: Glycohemoglobin (HgbA1c) 4.6 % (4.0-5.6)
[2025-06-02] MEDS: TOPROL XL 100 MG PO (08:56)
[2025-06-02] MEDS: PROTONIX IV 40 MG IV (08:56)
[2025-06-02] MEDS: NSS (PRESERVATIVE FREE) 10 ML IV (08:56)
--- NOTE | 2025-06-02 09:25 | W.PN.HOSP.TC ---
Today's Communication/Plan
-
Re-check H&H, Goal HGB >8, might need another unit
f/w GI & cardiology recommendations
Given NS bolus, avoid falls
Assessment / Plan
Assessment / Plan
Physical Exam
General: Well Developed, Well Nourished and No Apparent Distress
HEENT: NormoCephalic, Moist mucous membranes and Atraumatic
Respiratory: Clear
Cardiac: S1/S2 , + Murmur
GI: Soft, Non Tender, Non Distended and Normal Bowel Sounds; Obese.
Musculoskeletal: No Clubbing, No Cyanosis and No Edema
: No Enriquez
Skin: No Rash
Neuro: AO x 3 and Nonfocal/grossly intact
Psych: Calm
A/P:
# symptomatic hemorrhagic shock due to Acute blood loss anemia secondary to GI bleed exacerbated by aspirin
-hgb 8.3,
No abdominal pain or vomiting, no rectal bleeding over night
s/p 2 units, recheck H&H
Goal to keep HGB >8 with ACS
-IV PPI
Appreciate GI help
#exertional angina r/o NSTEMI
-trop 0.118 then up to 0.28 then 0.27
No active chest pain
-cardiology consulted
#hypokalemia
-k 3.4, oral kcl
-BMP in am
# Thrombocytopenia
#NORM likely hypovolemic
-cr 1.4,
-BMP in am
# NORM
c/w IVF while hypotension
hold Benicar
Monitor for retention
# leukocytosis likely stress reaction
-patient is afebrile, ctm
#HLD
#essential HTN
#cardiomyopathy
- to hold Cartia,
c/w metoprolol continued with hold parameter
-hold Benicar
#DVT prophylaxis
-scd
#Code status
-full code
Total time spent to see the patient, examine the patient, review data and lab result, discuss treatment plan with patient, nursing staff around 55 minutes
Anticipated Discharge: > 48 hours
Subjective/Interval History
-
Date of Service: June 02, 2025
No chest pain
No abdominal pain
No palpitations
Objective Data
-
Labs:
Laboratory Results
06/01/25 06/02/25 06/02/25
23:01 03:26 09:24
WBC 12.7 H
Hgb 8.3 L 7.9 L Pending
Hct 25.1 L 24.2 L
Plt Count 127 L
Sodium 138
Potassium 3.5
Chloride 110 H
Carbon Dioxide 23
BUN 57 H
Creatinine 1.4 H
Glucose 102 H
Calcium 8.9
Vital Signs:
Vital Signs
Temp Pulse Resp BP Pulse Ox
98.4 F 96 21 109/65 98
06/02/25 08:10 06/02/25 08:56 06/02/25 08:10 06/02/25 08:56 06/02/25 08:05
I&O
06/01/25 06/02/25 06/03/25
06:59 06:59 06:59
Intake Total 980 / 980 250 / 250
Output Total 500 / 500
Balance 480 / 480 250 / 250
[2025-06-02] MEDS: NSS 500 IV (09:40)
--- NOTE | 2025-06-02 09:45 | PTCARENOTE ---
PRBC completed this am- ortho vs taken and relayed to Dr. Louise. IV Bolus initiated.
[2025-06-02 10:25] LABS: Hemoglobin 8.5 g/dL (13.0-18.0)
--- NOTE | 2025-06-02 10:49 | CONSULT.CT ---
Consultation
-
Date/Time Consultation Requested: 06/02/25
Date/Time Consultation Performed: 06/02/25
Requesting Provider: Jairo Green MD
Performing Provider: Radha SAHNI for Antoni Asif MD
Reason for Consultation: MR, from SHU with LVOT obstruction/HCOM
Patient History
Physicians
Family Physician: Devyn Vicente
Outpatient Land Use Planner: Jairo Green ([facility]); Adela Pinzon ([facility])
Inpatient Land Use Planner: [facility]
History of Present Illness
75-year-old male with complex medical history including known asymmetric septal hypertrophy/HOCM with severe dynamic LVOT obstruction and associated SHU, was admitted to [facility] 06/01 with right sided chest pressure, exertional dyspnea, lightheadedness
and dark stool. Aspirin use only. BNP 81275 consistent with demand ischemia/heart failure. Hb 7.9>transfused total 2 PRBC. PPI initiated. New NORM (creat 0.9>1.4), Benicar held. Patient was recently evaluated by Dr. Adela Pinzon and underwent
diagnostic cardiac catheterization 04/11/2025 as part of evaluation for candidacy of (alcohol vs surgical) septal ablation. Cath reported 60% focal LAD. LVEDP 22 and mean LVOT gradient 82 mmHg. TTE from 06/01/25 with preserved EF and severe mitral
regurgitation. Currently pain free and awaiting EGD with gastroenterology.
Pertinent negatives: Denies CVA/TIA, asthma/COPD, thoracic radiation/surgery, dysphagia, varicosities/vein stripping
Past Medical History
Past Medical History: Other
iron deficiency anemia
asymmetric septal hypertrophy/HOCM
dynamic LVOT obstruction with SHU
HTN
HLD
CAD (60% LAD)
mild
mild MR
BPH
R renal mass
Melanoma
WIL with CPAP use
Nephrolithiasis
bladder perforation
Class I obesity (on Zepbound)
Past Surgical History
Past Surgical History: Other
B/L inguinal hernia repair
B/L cataract extraction
melanoma excision on back
TURP
Dental History
routine dental cleaning 1 month ago
Family History
Mother: N/A
Father: N/A
Social History
Alcohol: Occasional
Drug: None
Tobacco: Former Smoker
Personal:
Living: With Spouse
Employment: Retired
Allergies
Allergy/AdvReac Type Severity Reaction Status Date / Time
iodine Allergy Itching Verified 06/01/25 11:32
hayfever Allergy itchy Uncoded 06/01/25 11:32
eyes,
sneezing
whole wheat Allergy throat Uncoded 06/01/25 11:32
closes,
trouble
breathing,
welts,
tiching
Home Medications
�Medication �Instructions �Recorded �Confirmed �Type
atorvastatin 20 mg tablet 40 mg PO QPM High Cholesterol 04/20/23 06/01/25 History
olmesartan 20 mg tablet (Benicar) 20 mg PO QPM Blood Pressure 04/20/23 06/01/25 History
aspirin 81 mg tablet,delayed 81 mg PO HS Blood Clot 06/01/25 06/01/25 History
release Prevention/Tx
diltiazem HCl 180 mg 180 mg PO HS Heart 06/01/25 06/01/25 History
capsule,extended release 24 hr Disease/Condition
(Cartia XT)
docusate sodium 100 mg capsule 100 mg PO BID Constipation 06/01/25 06/01/25 History
(Colace)
ferrous sulfate 325 mg (65 mg 325 mg PO DAILY Supplement 06/01/25 06/01/25 History
iron) tablet (Iron (ferrous
sulfate))
metoprolol succinate 100 mg 100 mg PO DAILY Heart 06/01/25 06/01/25 History
tablet,extended release 24 hr Disease/Condition
(Toprol XL)
tirzepatide (weight loss) 7.5 7.5 mg SC FR@1900 Diabetes 06/01/25 06/01/25 History
mg/0.5 mL subcutaneous pen
injector (Zepbound)
Review of Systems
-
History Source: Patient
General: Reports Weight Loss (intentional 17 pound wt loss with Zepbound x 3 months)
HEENT: Reports No Symptoms
Respiratory: Reports LYMAN
Cardiac: Reports No Symptoms
Abdomen/GI: Reports No Symptoms
: Reports No Symptoms
Musculoskeletal: Reports No Symptoms
Skin: Reports No Symptoms
Neurological: Reports No Symptoms
Vascular: Reports No Symptoms
Physical Exam
Vital Signs
Temp 98.4 F 06/02/25 08:10
Temp route: Oral 06/02/25 08:10
Pulse 96 06/02/25 08:56
Rhythm: Sinus arrhythmia 06/01/25 19:05
With- PAC's 06/01/25 19:05
Resp Rate 21 06/02/25 08:10
Blood pressure 109/65 06/02/25 08:56
Blood pressure extremity used: Right upper arm 06/02/25 08:10
Position: Lying 06/02/25 08:10
MAP (cuff-Angela Monitor) 77 06/02/25 08:05
SaO2 98 06/02/25 08:05
Oxygen Mode of Delivery Room air 06/02/25 01:12
Can the patient verbally communicate their pain? Yes 06/01/25 19:05
Actual Weight 101.2 kg 06/02/25 05:35
Body Mass Index (BMI) 33.0 06/02/25 05:35
Supine- Blood Pressure 109/65 06/02/25 09:07
Supine- Pulse 96 06/02/25 09:07
Sitting- Blood Pressure 91/76 06/02/25 09:07
Sitting- Pulse 100 06/02/25 09:07
Standing- Blood Pressure 66/57 06/02/25 09:07
Standing- Pulse 104 06/02/25 09:07
Blood pressure extremity used: Left upper arm 06/02/25 09:07
Mode BP taken: Automatic 06/02/25 09:07
Labs
06/02/25 10:05
06/02/25 03:26
PT 16.7 Sec (11.4-14.6) H 06/01/25 12:12
APTT 30.2 Sec (23.4-35.0) 06/01/25 12:12
Hemoglobin A1c 4.6 % (4.0-5.6) 06/01/25 16:15
Troponin I 0.273 ng/ml H* 06/01/25 23:01
Lpz-V-Jplrsqspmam Pept 46696 pg/ml 06/01/25 20:34
Qvi-V-Rdhqrxkxyzc Pept Cancelled 06/01/25 20:34
Diagnostic Studies
TTE 06/01/25:
LVEF 65%. Normal left ventricle size and function. Severe asymmetric left ventricular hypertrophy. Septal wall measures 2.3cm. There does appear to be a significant LVOT gradient present with significant turbulence. Stage II diastolic dysfunction.
Right ventricular size and systolic function are within normal limits. Thickened mitral valve leaflets with possible possible torn chordae with severe eccentric mitral regurgitation into pulmonary veins. Systolic anterior motion is also present with
LVOT obstruction. Thickened aortic valve with moderate aortic stenosis and moderate aortic regurgitation. Mean aortic gradient 20 mmHg. A portion of the increased aortic gradient could be from the LVOT obstruction. Mild tricuspid regurgitation.
Estimated pulmonary artery pressure of 32 mmHg assuming a right atrial pressure of 3 mmHg. Aortic root 4.1 cm at sinus of Valsalva and 3.9 cm at ascending aorta.
Exam
General: Well Developed, Well Nourished and No Apparent Distress
HEENT: Normocephalic, Anicteric, Moist Mucous Membranes and PERRLA
Neck: Trachea Midline
Respiratory: Clear
Cardiac: S1/S2 and Murmur (III/ HSM throughout precordium)
GI: Soft, Non Tender, Non Distended and Normal Bowel Sounds
Rectal: Deferred by Provider
Skin: Warm and Dry
Neuro: AO x 3, No Motor Deficits and Nonfocal/Grossly Intact
Extremities: Pulses (+1/4 DP pulses B/L)
Lymph: No Lymphadenopathy
Psych: Calm
Assessment / Plan
-
75 year old male with known asymmetric septal hypertrophy/HOCM with severe dynamic LVOT obstruction and associated SHU, admitted with chest pressure, exertional dyspnea, lightheadedness and dark stool.
Found to have sere mitral regurgitation, moderate aortic stenosis and regurgitation, SHU with LVOT obstruction, acute on chronic anemia and concern for UGI bleed. Known CAD with 60% LAD per cath in April 2025 @ [facility]
- for EGD today
- need DIPAK
- surgeon to review imaging and discuss options with patient/care team
Data Reviewed
-
EKG: Report Reviewed by me and Discussed with Physician
Echo: Report Reviewed by me and Discussed with Physician
Radiology: Report Reviewed by me and Discussed with Physician
Labs: Labs Reviewed by me and Discussed with Physician
[2025-06-02] MEDS: D5/0.9% SODIUM CHLORIDE 1000 IV (13:49)
--- NOTE | 2025-06-02 14:01 | PTCARENOTE ---
Addendum entered by Evelyne Mancia RN 06/02/25 16:25:
Sent to gi lab around 3pm, returned from PACU now. AAO denies pain.
Original Note:
IVF initiated- ortho vs repeated and unchanged this time. NPO status maintained awaiting procedure feedback.
--- NOTE | 2025-06-02 15:11 | W.PN.CARDCBS ---
Today's Communication / Plan
-
Continue supportive care with transfusion
Follow hemoglobin closely.
Continue Toprol-XL and avoid significant tachycardia if possible.
Recommend EGD first to evaluate source of bleeding. Patient is stable for the procedure.
After bleeding has been evaluated we will then make a decision regarding his mitral valve and hypertrophic cardiomyopathy.
Abnormal troponin is likely nonischemic myocardial injury.
Once bleeding source has been identified would likely start gently diuresing.
Impression / Plan
-
Primary Well Service Pump Equipment Operator: Dr. Yanez
Assessment:
Presentation with dark stool
Acute anemia, suspected UGI bleed
R sided chest pain
Elevated troponin
Asymmetric septal hypertrophy
LV outflow obstruction
Mild aortic stenosis
Hypertension
Hyperlipidemia
BPH
Obesity
Adrenal adenoma
Echo 06/04/2024: Mild LVH with septal hypertrophy up to 2.1 cm, EF 60 to 65%, resting LVOT gradient of 11 mmHg increasing to 54 mmHg with Valsalva, mild MR, dilated LA, mild with peak/mean gradient 34/19 mmHg, mild to moderate AR, normal right
heart with PAP 27 mmHg, mildly dilated aortic root and ascending aorta
Echo 06/01/25: EF 65%, severe asymmetric septal hypertrophy of 2.3 cm. Severe eccentric mitral regurgitation with SHU. Moderate aortic stenosis and regurgitation. Mean gradient 20, mild TR PA pressure 32, mildly dilated arctic root
Cardiac cath 04/12/25 at [place]: No evidence of resting pulmonary hypertension, evidence of mild AAS with mean gradient 9 mmHg, mean gradient of 82 mmHg across LVOT suggestive of severe LV outflow tract obstruction, LAD with 3 medium sized diagonal
branches with 60% focal stenosis at D1. iFR of lesion 0.84 which by report was felt to be hemodynamically significant, however no intervention performed
Plan:
- He presents with an acute GI bleed requiring 2 units of blood. Hemoglobin was previously normal and is now in the 7.9-8 range. He is having tarry black stool. Hold aspirin
- He has hypertrophic cardiomyopathy with previous significant gradients and moderate valvular disease. On his echocardiogram today he has severe mitral regurgitation with SHU. It remains unclear whether this is from his hypovolemia/GI bleed or
whether he has new significant mitral valve pathology.
- He was previously scheduled for alcohol septal ablation at the [facility] but this has been on hold after he lost weight with Zepbound.
- Plan would be to proceed with endoscopy/possible colonoscopy to evaluate his source of bleeding first. He is not hypoxic and overall hemodynamically stable.
- Pending the results of his GI evaluation we would then consider further evaluation of his mitral regurgitation either as an inpatient or as an outpatient.
- I discussed this at length with the patient and his family.
- Continue Toprol XL 100 mg daily. If blood pressure remains stable restart diltiazem after endoscopy.
- Goal heart rate would be in the 50 to 60 bpm range assuming blood pressure is stable. Systolic blood pressure currently in the 90s and stable
-He has known coronary artery disease which is being treated conservatively for now. iFR positive diagonal lesion.
-Abnormal troponin is likely nonischemic myocardial injury.
-His proBNP is elevated and we will hold on diuresis for today but likely start in AM.
-Creatinine at 1.4. Continue to follow
- Continue to follow hemoglobin closely.
Progress Note - Well Service Pump Equipment Operator
Subjective
Date of Service: June 02, 2025
Overall he feels well. Denies any significant shortness of breath today. He denies chest pains today. His hemoglobin is improved and up to 8.5.
Objective
Labs:
06/02/25 10:05
06/02/25 03:26
Labs
Hgb 8.5 g/dL (13.0-18.0) L 06/02/25 10:05
Hct 24.2 % (39.0-52.0) L 06/02/25 03:26
Plt Count 127 10^3/uL (130-400) L 06/02/25 03:26
PT 16.7 Sec (11.4-14.6) H 06/01/25 12:12
INR 1.32 06/01/25 12:12
APTT 30.2 Sec (23.4-35.0) 06/01/25 12:12
Sodium 138 mmol/L (135-145) 06/02/25 03:26
Potassium 3.5 mmol/L (3.5-5.1) 06/02/25 03:26
BUN 57 mg/dl (9-20) H 06/02/25 03:26
Creatinine 1.4 mg/dL (0.7-1.3) H 06/02/25 03:26
Glucose 102 mg/dl (70-99) H 06/02/25 03:26
Troponins
06/01/25 06/01/25 06/01/25
12:12 16:15 20:34
Troponin I 0.118 H* 0.180 H* D 0.288 H* D
06/01/25
23:01
Troponin I 0.273 H*
Vital Signs and I&O:
Vital Signs
Temp Pulse Resp BP Pulse Ox
98.4 F 96 21 97/64 98
06/02/25 08:10 06/02/25 14:00 06/02/25 14:00 06/02/25 13:53 06/02/25 08:05
Vital Signs
Temp Pulse Resp BP Pulse Ox
98.4 F 96 21 97/64 98
06/02/25 08:10 06/02/25 14:00 06/02/25 14:00 06/02/25 13:53 06/02/25 08:05
Intake & Output
05/31/25 06/01/25 06/02/25 06/03/25
06:59 06:59 06:59 06:59
Intake Total 980 / 980 250 / 250
Output Total 500 / 500
Balance 480 / 480 250 / 250
Physical Exam
Physical Exam
GEN: No distress, awake, Ox3
HEENT: supple, anicteric, mmm
LUNGS: CTA, no wheezes/rales
CV: Reg, S1/S2, 3/6 syst LSB, no gallop
ABD: soft, BS+, NT/ND
EXT: No edema
NEURO: Gross non-focal
SKIN: No rash
[2025-06-02] MEDS: LIPITOR 40 MG PO (17:26)
--- NOTE | 2025-06-02 17:40 | CM ---
Following up on Patient. RN stated that patient is still being followed by consult services. PT/OT is following.
PLAN: TDB, Ancipitate Home No Needs vs. PT or SNF
[2025-06-03] VITALS (16 sets, daily range): BP systolic 96–148; BP diastolic 65–91; BMI 33.1
[2025-06-03] MEDS: D5/0.9% SODIUM CHLORIDE 1000 IV (02:16)
[2025-06-03 05:23] LABS: Blood Urea Nitrogen 38 mg/dl (9-20); Calcium 8.0 mg/dl (8.4-10.2); Carbon Dioxide 23 mmol/L (22-30); Chloride 117 mmol/L (98-107); Estimated Creatinine Clearance 57 ml/min; Glucose 99 mg/dl (70-99); Hematocrit 22.1 % (39.0-52.0); Hemoglobin 7.2 g/dL (13.0-18.0); Mean Corp Hgb Conc. 32.6 g/dL (33.0-37.0); Mean Corpuscular Volume 86.7 fL (80.0-94.0); Platelet Count 108 10^3/uL (130-400); Potassium 3.3 mmol/L (3.5-5.1); Red Cell Dist. Width 16.0 % (11.5-14.5); Sodium 142 mmol/L (135-145); eGFR 56.93
--- NOTE | 2025-06-03 05:58 | W.PN.UPDATE ---
Update Note
Progress Note Update
AM labs: Hgb 7.2/Hct 22.1. Goal to keep Hgb >8. Ordered 1 unit PRBC's to transfuse now.
Potassium 3.3, ordered supplemental potassium 40 meq PO x 1.
--- NOTE | 2025-06-03 06:00 | PTCARENOTE ---
Hgb dropped to 7.2 on morning labs. Notified LAUNDRY SORTER. 1 unit PRBCs ordered and started on pt. Tolerated 15 minute transfusion check well.
[2025-06-03] MEDS: KCL 40 MEQ PO (06:33)
--- NOTE | 2025-06-03 08:33 | W.PN.GI.CBS2 ---
Today's Communication / Plan
-
Trend hemoglobin
Will schedule for outpatient capsule endoscopy and colonoscopy
Assessment / Plan
-
PT is a 75yo with hx melanoma, bladder perforation, renal mass, HTN, cataracts, diverticulosis, BPH, colon polyps, renal stones, PNA, syncope, sleep apnea, cardiomyopathy with onset of chest pain with exertion and severe fatigue. He also admits to
with dark stools day prior to admission and drop in hbg several months ago with iron use for last 3 months. He has also had progressive chest burning and lightheadedness. He also related nausea and constipation which is attributes to recent
Zepbound use. In review with patient he is noted with prior hbg in February 09.2, 05/20 11.5, then 8.3 on admission with BUN 61. Pt also noted with mild troponin increase with cardiology consult pending. Rectal in ER with heme + dark stools. Hx
Colonoscopy for hx colon polyps last 06/01/25 [facility] - Diverticulosis in the sigmoid colon. no prior EGD.
-anemia with elevated BUN concern for UGI bleed
-chest burning
-dark stool
-exertional chest pain
-hypokalemia
-on chronic Zepbound therapy
other med problems:
- cardiomyopathy
-melanoma
-bladder perforation
- renal mass
- HTN
- cataracts
-diverticulosis
-BPH
-colon polyps
- renal stones
- PNA
- syncope
-sleep apnea
PLAN:
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
s/p enteroscopy 06/02 with active bleeding angioectasias seen in the proximal jejunum which was treated with APC and clip
He is getting 2 units of blood today and received 1 unit 06/02 and 1 unit on 06/01 (total 4 units since admission)
his platelets are also dropping monitor closely
May also need to rule out hemolysis although less likely his bilirubin on admission was normal
If he does have recurrent active bleeding then trasfer to [facility] for inpatient capsule endoscopy and based on that may need upper or lower double-balloon enteroscopy
If no further bleeding and hemoglobin remains stable posttransfusion then will schedule him for outpatient capsule study and most likely will also need a repeat colonoscopy
Continue PPI
trend HB
GI will s/o and will be available as needed
Subjective
Subjective
Date of Service: June 03, 2025
Getting 2 more blood transfusion today, one 06/02 and one 06/01. No melena or rectal bleeding though since admission. Denies any abdominal pain
Objective
Data Reviewed
Laboratory Data:
Laboratory Results
06/03/25 04:49
06/03/25 04:49
Laboratory Results
PT 16.7 Sec (11.4-14.6) H 06/01/25 12:12
INR 1.32 06/01/25 12:12
APTT 30.2 Sec (23.4-35.0) 06/01/25 12:12
Total Bilirubin 0.7 mg/dl (0.2-1.3) 06/01/25 12:12
AST 20 U/L (17-59) 06/01/25 12:12
ALT 16 U/L (0-50) 06/01/25 12:12
Alkaline Phosphatase 56 U/L (38-126) 06/01/25 12:12
Vital Signs and I&O:
Vital Signs
Temp Pulse Resp BP Pulse Ox
98.2 F 86 15 140/75 100
06/03/25 07:13 06/03/25 06:47 06/03/25 06:47 06/03/25 06:47 06/03/25 06:47
I&O
06/02/25 06/03/25 06/04/25
06:59 06:59 06:59
Intake Total 980 / 980 250 / 250
Output Total 500 / 500 2100 / 2100
Balance 480 / 480 -1850 / -1849
Physical Exam
Physical Exam
Cardiology: Normal Sinus Rhythm and Murmur (Systolic murmur)
Pulmonary: Clear
GI: Soft, Non Distended, Non Tender and Normal Bowel Sounds
--- NOTE | 2025-06-03 09:58 | W.PN.HOSP.TC ---
Today's Communication/Plan
-
two units of blood, Lasix in between
Replace K
Assessment / Plan
Assessment / Plan
Physical Exam
General: Well Developed, Well Nourished and No Apparent Distress
HEENT: NormoCephalic, Moist mucous membranes and Atraumatic
Respiratory: Clear
Cardiac: S1/S2 , + Murmur
GI: Soft, Non Tender, Non Distended and Normal Bowel Sounds; Obese.
Musculoskeletal: No Clubbing, No Cyanosis and No Edema
: No Enriquez
Skin: No Rash
Neuro: AO x 3 and Nonfocal/grossly intact
Psych: Calm
A/P:
# symptomatic hemorrhagic shock due to Acute blood loss anemia secondary to GI bleed exacerbated by aspirin
-hgb 8.3, then down to 7, will give another 2 units
s/p 2 units
BP stable, stop IVF
Give Lasix in between two units of blood
s/p enteroscopy 06/02 with active bleeding angiectasias seen in the proximal jejunum which was treated with APC and clip
No abdominal pain or vomiting, no rectal bleeding over night
c/w PPI
Appreciate GI help, recommend capsule endoscopy
#Elevated troponin c/w nonischemic myocardial injury.
-trop 0.118 then up to 0.28 then 0.27
No active chest pain
-cardiology consulted
#hypokalemia
replace
# Hypertrophic CMP
s/p Cath and echo 2024 showed severe LV outflow tract obstruction, moderate / AR, Severe MR.
# Thrombocytopenia
#NORM likely hypovolemic
-cr 1.4,
-BMP in am
# NORM
s/p IVF
Creatinine is coming down
hold Benicar
Monitor for retention
# leukocytosis likely stress reaction
-patient is afebrile, ctm
#HLD
#essential HTN
#cardiomyopathy
- to hold Cartia,
c/w metoprolol continued with hold parameter
-hold Benicar
#DVT prophylaxis
-scd
#Code status
-full code
Total time spent to see the patient, examine the patient, review data and lab result, discuss treatment plan with patient, nursing staff around 55 minutes
Anticipated Discharge: 24 - 48 hours
Subjective/Interval History
-
Date of Service: June 03, 2025
No abd pain
No melena or rectal bleeding
NO N/V
Objective Data
-
Labs:
Laboratory Results
06/03/25
04:49
WBC 7.7
Hgb 7.2 L
Hct 22.1 L
Plt Count 108 L
Sodium 142
Potassium 3.3 L
Chloride 117 H
Carbon Dioxide 23
BUN 38 H
Creatinine 1.3
Glucose 99
Calcium 8.0 L
Vital Signs:
Vital Signs
Temp Pulse Resp BP Pulse Ox
98.1 F 82 16 142/79 100
06/03/25 09:25 06/03/25 09:14 06/03/25 09:14 06/03/25 09:14 06/03/25 06:47
I&O
06/02/25 06/03/25 06/04/25
06:59 06:59 06:59
Intake Total 980 / 980 250 / 250 250 / 250
Output Total 500 / 500 2100 / 2100
Balance 480 / 480 -1850 / -1850 250 / 250
[2025-06-03] MEDS: NSS (PRESERVATIVE FREE) 10 ML IV (11:12)
[2025-06-03] MEDS: PROTONIX IV 40 MG IV (11:12)
[2025-06-03] MEDS: TOPROL XL 100 MG PO (11:12)
[2025-06-03] MEDS: LASIX 20 MG IV (11:13)
[2025-06-03] MEDS: LIPITOR 40 MG PO (17:18)
--- NOTE | 2025-06-03 18:17 | W.PN.CARDCBS ---
Today's Communication / Plan
-
Continue transfusion with IV Lasix.
Blood pressure is overall improved and stable.
Heart rate remains somewhat elevated. Continue Toprol and hopefully restart diltiazem in AM.
Will need repeat transthoracic echo once bleeding stops and volume status is optimized to reassess mitral valve/SHU
Would consider DIPAK at some point if unable to assess mitral valve on transthoracic echo
Abnormal troponin is likely nonischemic myocardial injury
Continue to follow hemoglobin closely.
Discussed with family at length
Impression / Plan
-
Primary Commercial Loan Closer: Dr. Yanez
Assessment:
Presentation with dark stool
Acute anemia, suspected UGI bleed
EGD with duodenal AVMs cauterized.
R sided chest pain
Elevated troponin
Asymmetric septal hypertrophy
LV outflow obstruction
Mild aortic stenosis
Hypertension
Hyperlipidemia
BPH
Obesity
Adrenal adenoma
Echo 06/04/2024: Mild LVH with septal hypertrophy up to 2.1 cm, EF 60 to 65%, resting LVOT gradient of 11 mmHg increasing to 54 mmHg with Valsalva, mild MR, dilated LA, mild with peak/mean gradient 34/19 mmHg, mild to moderate AR, normal right
heart with PAP 27 mmHg, mildly dilated aortic root and ascending aorta
Echo 06/01/25: EF 65%, severe asymmetric septal hypertrophy of 2.3 cm. Severe eccentric mitral regurgitation with SHU. Moderate aortic stenosis and regurgitation. Mean gradient 20, mild TR PA pressure 32, mildly dilated arctic root
Cardiac cath 04/12/25 at [place]: No evidence of resting pulmonary hypertension, evidence of mild AAS with mean gradient 9 mmHg, mean gradient of 82 mmHg across LVOT suggestive of severe LV outflow tract obstruction, LAD with 3 medium sized diagonal
branches with 60% focal stenosis at D1. iFR of lesion 0.84 which by report was felt to be hemodynamically significant, however no intervention performed
Plan:
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 Hopefully this is the source of his bleeding. His hemoglobin dropped down back to 7.2 when he got 2 units of blood today. Lasix given in between the units to help diurese.
- He has hypertrophic cardiomyopathy with previous significant gradients and moderate valvular disease. On his echocardiogram today he has severe mitral regurgitation with SHU. It remains unclear whether this is from his hypovolemia/GI bleed or
whether he has new significant mitral valve pathology.
- He was previously scheduled for alcohol septal ablation at the [facility] but this has been on hold after he lost weight with Zepbound.
- Once his bleeding has stopped we will then pursue a cardiac evaluation. I would recommend a transthoracic echo first to reassess the pathology of his mitral valve. His heart rate is still somewhat tachycardic and hopefully tomorrow we can
restart his diltiazem.
- Continue Toprol XL 100 mg daily.
- Goal heart rate would be in the 50 to 60 bpm range assuming blood pressure is stable. Systolic blood pressure currently in the 90s and stable
-He has known coronary artery disease which is being treated conservatively for now. iFR positive diagonal lesion.
-Abnormal troponin is likely nonischemic myocardial injury.
-His proBNP is elevated and we will hold on diuresis for today but likely start in AM.
-Creatinine is improving and down to 1.3. Continue to follow
- Continue to follow hemoglobin closely.
- Discussed at length with family and gastroenterology
Progress Note - Commercial Loan Closer
Subjective
Date of Service: June 03, 2025
Denies any further tarry stool. Getting transfusion today. Has no chest pains.
Objective
Labs:
06/03/25 04:49
06/03/25 04:49
Labs
Hgb 7.2 g/dL (13.0-18.0) L 06/03/25 04:49
Hct 22.1 % (39.0-52.0) L 06/03/25 04:49
Plt Count 108 10^3/uL (130-400) L 06/03/25 04:49
PT 16.7 Sec (11.4-14.6) H 06/01/25 12:12
INR 1.32 06/01/25 12:12
APTT 30.2 Sec (23.4-35.0) 06/01/25 12:12
Sodium 142 mmol/L (135-145) 06/03/25 04:49
Potassium 3.3 mmol/L (3.5-5.1) L 06/03/25 04:49
BUN 38 mg/dl (9-20) H 06/03/25 04:49
Creatinine 1.3 mg/dL (0.7-1.3) 06/03/25 04:49
Glucose 99 mg/dl (70-99) 06/03/25 04:49
Troponins
06/01/25 06/01/25 06/01/25
12:12 16:15 20:34
Troponin I 0.118 H* 0.180 H* D 0.288 H* D
06/01/25
23:01
Troponin I 0.273 H*
Vital Signs and I&O:
Vital Signs
Temp Pulse Resp BP Pulse Ox
97.7 F 97 20 119/78 100
06/03/25 15:33 06/03/25 14:00 06/03/25 14:00 06/03/25 14:00 06/03/25 06:47
Vital Signs
Temp Pulse Resp BP Pulse Ox
97.7 F 97 20 119/78 100
06/03/25 15:33 06/03/25 14:00 06/03/25 14:00 06/03/25 14:00 06/03/25 06:47
Intake & Output
06/01/25 06/02/25 06/03/25 06/04/25
06:59 06:59 06:59 06:59
Intake Total 980 / 980 250 / 250 500 / 500
Output Total 500 / 500 2100 / 2100
Balance 480 / 480 -1850 / -1850 500 / 500
Physical Exam
Physical Exam
GEN: No distress, awake, Ox3
HEENT: supple, anicteric, mmm
LUNGS: CTA, no wheezes/rales
CV: Reg, S1/S2, 3/6 syst LSB, no gallop
ABD: soft, BS+, NT/ND
EXT: No edema
NEURO: Gross non-focal
SKIN: No rash
--- NOTE | 2025-06-03 18:23 | PTCARENOTE ---
Received 2 unit PRBC this am followed by IV Lasix. 1800 ml urine output. Tolerating po diet, no stools noted. Sat on side of the bed for awhile today - orthostatic vs improved.
[2025-06-03] MEDS: KCL 20 MEQ PO (19:54)
[2025-06-03 20:48] LABS: Hepatitis C Antibody Negative (Negative)
[2025-06-04] VITALS (9 sets, daily range): BP systolic 101–160; BP diastolic 53–98; BMI 32.9
[2025-06-04 05:12] LABS: Blood Urea Nitrogen 28 mg/dl (9-20); Calcium 8.5 mg/dl (8.4-10.2); Carbon Dioxide 23 mmol/L (22-30); Chloride 115 mmol/L (98-107); Estimated Creatinine Clearance 57 ml/min; Glucose 92 mg/dl (70-99); Potassium 3.5 mmol/L (3.5-5.1); Sodium 142 mmol/L (135-145); eGFR 56.93
[2025-06-04 05:37] LABS: Hematocrit 28.1 % (39.0-52.0); Hemoglobin 9.3 g/dL (13.0-18.0); Mean Corp Hgb Conc. 33.1 g/dL (33.0-37.0); Mean Corpuscular Volume 86.7 fL (80.0-94.0); Platelet Count 104 10^3/uL (130-400); Red Cell Dist. Width 16.3 % (11.5-14.5)
[2025-06-04] MEDS: TOPROL XL 100 MG PO (08:06)
[2025-06-04] MEDS: KCL 20 MEQ PO (08:07)
[2025-06-04] MEDS: PROTONIX IV 40 MG IV (08:34)
[2025-06-04] MEDS: NSS (PRESERVATIVE FREE) 10 ML IV (08:35)
--- NOTE | 2025-06-04 09:19 | W.PN.HOSP.TC ---
Addendum entered and electronically signed by Janina Louise MD 06/04/25 15:26:
Addendum
Patient underwent DIPAK without complication. Good improvement in mitral regurgitation. Okay per cardiology to go home.
Patient has been ambulatory in his room without need for bilingual office assistant.
Total discharge time spent to see the patient, examine the patient, review data and lab result, discuss discharge plan with patient, nursing staff around 65 minutes
Original Note:
Today's Communication/Plan
-
Keep NPO for DIPAK
likely dc after
Assessment / Plan
Assessment / Plan
Physical Exam
General: Well Developed, Well Nourished and No Apparent Distress
HEENT: NormoCephalic, Moist mucous membranes and Atraumatic
Respiratory: Clear
Cardiac: S1/S2 , + Murmur
GI: Soft, Non Tender, Non Distended and Normal Bowel Sounds; Obese.
Musculoskeletal: No Clubbing, No Cyanosis and No Edema
: No Enriquez
Skin: No Rash
Neuro: AO x 3 and Nonfocal/grossly intact
Psych: Calm
A/P:
# symptomatic hemorrhagic shock due to Acute blood loss anemia secondary to GI bleed exacerbated by aspirin , resolved.
Stable HGB around 9, s/p 4 units of blood
BP stable, ok to resume BP medications
s/p Lasix in between two units of blood
s/p enteroscopy 06/02 with active bleeding angiectasias seen in the proximal jejunum which was treated with APC and clip
No abdominal pain or vomiting, no rectal bleeding over night
c/w PPI
Appreciate GI help, recommend capsule endoscopy in OP
#Elevated troponin c/w nonischemic myocardial injury.
-trop 0.118 then up to 0.28 then 0.27
No active chest pain
-cardiology consulted
#hypokalemia
replace
# Hypertrophic CMP
s/p Cath and echo 2024 showed severe LV outflow tract obstruction, moderate / AR, Severe MR.
Plan for DIPAK today, Keep NPO
# Thrombocytopenia
#NORM likely hypovolemic
-cr 1.4,
-BMP in am
# NORM
s/p IVF
Creatinine is coming down
hold Benicar
Monitor for retention
# leukocytosis likely stress reaction
-patient is afebrile, ctm
#HLD
#essential HTN
#cardiomyopathy
ok to resume Cartia,
c/w metoprolol continued with hold parameter
-hold Benicar until after finsihing NPO status
#DVT prophylaxis
-scd
#Code status
-full code
Total time spent to see the patient, examine the patient, review data and lab result, discuss treatment plan with patient, nursing staff around 55 minutes
Anticipated Discharge: Within 24 hours
Subjective/Interval History
-
Date of Service: June 04, 2025
No sob
No chest pain
No fevers
Objective Data
-
Labs:
Laboratory Results
06/04/25
04:07
WBC 6.3
Hgb 9.3 L D
Hct 28.1 L
Plt Count 104 L
Sodium 142
Potassium 3.5
Chloride 115 H
Carbon Dioxide 23
BUN 28 H
Creatinine 1.3
Glucose 92
Calcium 8.5
Vital Signs:
Vital Signs
Temp Pulse Resp BP Pulse Ox
98.5 F 87 21 160/79 97
06/04/25 07:20 06/04/25 08:06 06/04/25 08:00 06/04/25 08:06 06/04/25 08:00
I&O
06/03/25 06/04/25 06/05/25
06:59 06:59 06:59
Intake Total 250 / 250 1840 / 1839
Output Total 2099 / 2099 2500 / 2500 500 / 500
Balance -1850 / -1850 -660 / -660 -500 / -500
--- NOTE | 2025-06-04 10:43 | PTCARENOTE ---
Patient transported to cathead worker for DIPAK by cathead worker nurses. Verbal report given to RN.
--- NOTE | 2025-06-04 13:43 | W.PN.CARDCBS ---
Today's Communication / Plan
-
DIPAK shows improvement in mitral regurgitation with no flail segments or torn chordae suggestive of functional mitral regurgitation
Would resume home beta-caden and calcium channel caden
Stable for discharge from my perspective
Impression / Plan
-
Primary Supervisor Plastic Sheets: Dr. Yanez
Assessment:
Presentation with dark stool
Acute anemia, suspected UGI bleed
EGD with duodenal AVMs cauterized.
R sided chest pain
Elevated troponin
Asymmetric septal hypertrophy
LV outflow obstruction
Mild aortic stenosis
Hypertension
Hyperlipidemia
BPH
Obesity
Adrenal adenoma
Echo 06/04/2024: Mild LVH with septal hypertrophy up to 2.1 cm, EF 60 to 65%, resting LVOT gradient of 11 mmHg increasing to 54 mmHg with Valsalva, mild MR, dilated LA, mild with peak/mean gradient 34/19 mmHg, mild to moderate AR, normal right
heart with PAP 27 mmHg, mildly dilated aortic root and ascending aorta
Echo 06/01/25: EF 65%, severe asymmetric septal hypertrophy of 2.3 cm. Severe eccentric mitral regurgitation with SHU. Moderate aortic stenosis and regurgitation. Mean gradient 20, mild TR PA pressure 32, mildly dilated arctic root
Cardiac cath 04/12/25 at [place]: No evidence of resting pulmonary hypertension, evidence of mild AAS with mean gradient 9 mmHg, mean gradient of 82 mmHg across LVOT suggestive of severe LV outflow tract obstruction, LAD with 3 medium sized diagonal
branches with 60% focal stenosis at D1. iFR of lesion 0.84 which by report was felt to be hemodynamically significant, however no intervention performed
Plan:
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 Hopefully this is the source of his bleeding. His hemoglobin dropped down back to 7.2 when he got 2 units of blood today. Lasix given in between the units to help diurese.
-He has hypertrophic cardiomyopathy with previous significant gradients and moderate valvular disease
-He was previously scheduled for alcohol septal ablation at the [facility] but this has been on hold after he lost weight with Zepbound.
-On his TTE earlier this admission mitral regurgitation worsened and was severe with concern for torn chord and flail leaflet
-DIPAK today shows moderate MR with no flail segments or torn chordae suggesting that MR was functional due to hypovolemia
- Continue home Toprol and diltiazem
Stable for discharge from my perspective, outpatient follow-up to be arranged
Progress Note - Supervisor Plastic Sheets
Subjective
Date of Service: June 04, 2025
No acute overnight events. GI bleed has resolved and hemoglobin is trending up. Patient feels well. No chest discomfort, dyspnea/orthopnea/PND or lower extremity edema.
Underwent DIPAK earlier today which was well-tolerated.
Objective
Labs:
06/04/25 04:07
06/04/25 04:07
Labs
Hgb 9.3 g/dL (13.0-18.0) L D 06/04/25 04:07
Hct 28.1 % (39.0-52.0) L 06/04/25 04:07
Plt Count 104 10^3/uL (130-400) L 06/04/25 04:07
PT 16.7 Sec (11.4-14.6) H 06/01/25 12:12
INR 1.32 06/01/25 12:12
APTT 30.2 Sec (23.4-35.0) 06/01/25 12:12
Sodium 142 mmol/L (135-145) 06/04/25 04:07
Potassium 3.5 mmol/L (3.5-5.1) 06/04/25 04:07
BUN 28 mg/dl (9-20) H 06/04/25 04:07
Creatinine 1.3 mg/dL (0.7-1.3) 06/04/25 04:07
Glucose 92 mg/dl (70-99) 06/04/25 04:07
Troponins
06/01/25 06/01/25 06/01/25
16:15 20:34 23:01
Troponin I 0.180 H* D 0.288 H* D 0.273 H*
Vital Signs and I&O:
Vital Signs
Temp Pulse Resp BP Pulse Ox
97.8 F 91 18 160/89 97
06/04/25 09:57 06/04/25 10:02 06/04/25 10:02 06/04/25 10:02 06/04/25 08:00
Vital Signs
Temp Pulse Resp BP Pulse Ox
97.8 F 91 18 160/89 97
06/04/25 09:57 06/04/25 10:02 06/04/25 10:02 06/04/25 10:02 06/04/25 08:00
Intake & Output
06/02/25 06/03/25 06/04/25 06/05/25
06:59 06:59 06:59 06:59
Intake Total 980 / 980 250 / 250 1840 / 1840
Output Total 500 / 500 2100 / 2100 2500 / 2500 500 / 500
Balance 480 / 480 -1850 / -1850 -660 / -660 -500 / -500
Physical Exam
Physical Exam
Gen: NAD, AAOx3
HEENT: NC/AT, sclera anicteric
Neck: No JVD
CV: NL s1/s2, 2/6 JANETTE
Lungs: CTAB
Abd: S/ND
Ext: No LE edema
Skin: Warm, dry
Neuro: Non-focal
--- NOTE | 2025-06-04 15:11 | PTCARENOTE ---
Patient AOx3. Sinus arrhythmia on monitor. BP stable. On RA. Standby assist when ambulating. Call franks within reach, bed in lowest position, and bed of wheels locked.
--- NOTE | 2025-06-04 15:11 | CM ---
Following up on Patient. Patient discharging. PLAN: Home No Needs.
--- NOTE | 2025-06-04 15:13 | W.DCSUMMARY ---
Discharge Summary
Discharge Data
Date of Admission: 06/01/25
Date of Discharge: 06/04/25
-
Pending Results: No
Hospital Course
75 years old male presented to the emergency room with symptom of dark stool with dizziness. Patient reported that his command and control systems integrator informed him that he had anemia about 3 months ago. He saw his PCP and was started on oral iron and was referred
to GI but he did not make a follow-up yet. hemoglobin was 8.3 with an elevated BUN of 61. He was given IVF for low blood pressure and subsequent hemoglobin came down to 7.2. Patient had total of 3 units of RBCs. Patient was evaluated by
gastroenterology. He underwent upper enteroscopy 06/02 with active bleeding angiectasias seen in the proximal jejunum which was treated with APC and clip. Patient did not have recurrent black stools in the hospital. He tolerated diet well. GI
doctor recommended outpatient capsule endoscopy and colonoscopy. He also had mildly elevated troponin with no chest pain. Echo 06/01/25: EF 65%, severe asymmetric septal hypertrophy of 2.3 cm. Severe eccentric mitral regurgitation with SHU.
Moderate aortic stenosis and regurgitation. Mean gradient 20, mild TR PA pressure 32, mildly dilated arctic root. Patient underwent DIPAK that showed improvement in mitral regurgitation with no flail segments or torn chordae suggestive of functional
mitral regurgitation. Route Sales Delivery Driver recommended to resume blood pressure medications as patient's blood pressure started to be elevated. Patient remained hemodynamically stable. He was discharged home in a stable condition.
Discharge Plan
-
Patient Disposition: Home (Routine Discharge)
Discharge Diagnosis/Procedures: Acute blood loss anemia secondary to GI bleeding status post upper enteroscopy and treatment of angiodysplasia. You will need to follow-up with GI for capsule endoscopy.
You were evaluated by cardiology for mitral valve disease. You had transesophageal echocardiogram that showed improvement in mitral regurgitation.
You will need to follow-up with your primary care doctor and recheck your blood count in 1 week.
.
Diet: As tolerated
Blood Work: CBC & BMP in one week
Referrals:
Jairo Yanez MD [Active, Cardiology] - in four to six weeks
Trupti Nava MD [Active, Gastroenterology] - in one to two weeks
Referral Note: You will need to make an appointment for capsule endoscopy and colonoscopy
Devyn Vicente MD [Family Provider, Internal Medicine] - in one to two weeks
Prescriptions:
New
pantoprazole [Protonix] 40 mg tablet,delayed release (DR/EC)
40 mg PO DAILY Qty: 30 0RF
Continued
atorvastatin 20 mg Tablet
40 mg PO QPM
olmesartan [Benicar] 20 mg Tablet
20 mg PO QPM
diltiazem HCl [Cartia XT] 180 mg capsule,extended release 24hr
180 mg PO HS
ferrous sulfate [Iron (ferrous sulfate)] 325 mg (65 mg iron) Tablet
325 mg PO DAILY
Zepbound 7.5 mg/0.5 mL pen injector
7.5 mg SC FR@1900
metoprolol succinate [Toprol XL] 100 mg Tablet Extended Release 24 Hr
100 mg PO DAILY
docusate sodium [Colace] 100 mg Capsule
100 mg PO BID
Held
aspirin 81 mg Tablet,Delayed Release (Dr/Ec)
81 mg PO HS
Hold Instructions: Resume on 06/08/25.
Discharge Orders:
Discharge Patient (As Directed); Ordered 06/04/25
Ordered By: Janina Louise
Discharge Date and Time
Print Language: BULGARIAN
--- NOTE | 2025-06-04 15:46 | PTCARENOTE ---
Patient d/c via wheelchair by patient transport. Belongings sent with patient. IV removed.
== END 2025-06-04 15:46 | disposition home or self-care (01) | DRG 377 ==
LOC: IMU 14:07
PROVIDERS: Internal Medicine Cardiovascular Disease; Registered Nurse; ADMITTING PHYSICIAN Internal Medicine; ATTENDING PHYSICIAN Internal Medicine; CONSULT PHYSICIAN Internal Medicine Cardiovascular Disease; CONSULT PHYSICIAN Internal Medicine Gastroenterology; EMERGENCY PHYSICIAN Emergency Medicine; FAMILY PHYSICIAN Internal Medicine
PROC: 0W3P8ZZ Control Bleeding in Gastrointestinal Tract, Via Natural or Artificial Opening Endoscopic (ICD-10-PCS; 2025-06-01)
PROC: 30233N1 Transfusion of Nonautologous Red Blood Cells into Peripheral Vein, Percutaneous Approach (ICD-10-PCS; 2025-06-01)
PROC: B24BZZ4 Ultrasonography of Heart with Aorta, Transesophageal (ICD-10-PCS; 2025-06-04)
DX: K31.811 Angiodysplasia of stomach and duodenum with bleeding (principal); R57.8 Other shock; D62 Acute posthemorrhagic anemia; N17.9 Acute kidney failure, unspecified; I42.1 Obstructive hypertrophic cardiomyopathy; I5A Non-ischemic myocardial injury (non-traumatic); D68.32 Hemorrhagic disorder due to extrinsic circulating anticoagulants; T39.015A Adverse effect of aspirin, initial encounter; I11.0 Hypertensive heart disease with heart failure; E78.5 Hyperlipidemia, unspecified; I95.9 Hypotension, unspecified; E87.6 Hypokalemia; E86.1 Hypovolemia; E66.811 Obesity, class 1; N40.0 Benign prostatic hyperplasia without lower urinary tract symptoms; I25.10 Atherosclerotic heart disease of native coronary artery without angina pectoris; G47.33 Obstructive sleep apnea (adult) (pediatric); K44.9 Diaphragmatic hernia without obstruction or gangrene; D35.00 Benign neoplasm of unspecified adrenal gland; K57.30 Diverticulosis of large intestine without perforation or abscess without bleeding; F43.9 Reaction to severe stress, unspecified; D72.829 Elevated white blood cell count, unspecified; D69.6 Thrombocytopenia, unspecified; I05.1 Rheumatic mitral insufficiency; Z68.32 Body mass index [BMI] 32.0-32.9, adult; Z79.82 Long term (current) use of aspirin; Z79.899 Other long term (current) drug therapy; Z85.820 Personal history of malignant melanoma of skin; Z87.891 Personal history of nicotine dependence
CPT/HCPCS: 36430; 71045; 80048; 80053; 80061; 82607; 82728; 82746; 83036; 83540; 83550; 83880; 84484; 85014; 85018; 85025; 85027; 85610; 85730; 86803; 86850; 86900; 86901; 86920; 87040; 87070; 87147; 93005; 93306; 93312; 93320; 93325; 96374; 96376; 99285; P9016

== ENCOUNTER → 2025-07-01 10:34 | Outpatient (REF) | payer MEDICARE, OTHER, SELFPAY | LOC: RAD 10:34 | PROVIDERS: ATTENDING PHYSICIAN Specialist; FAMILY PHYSICIAN Internal Medicine | DX: N28.89 Other specified disorders of kidney and ureter (principal) | CPT/HCPCS: 74170; Q9967 ==

== ENCOUNTER → 2025-07-07 09:54 | Outpatient (REF) | payer MEDICARE, OTHER, SELFPAY ==
[2025-07-07 11:26] LABS: Hematocrit 37.3 % (39.0-52.0); Hemoglobin 11.9 g/dL (13.0-18.0); Mean Corp Hgb Conc. 31.9 g/dL (33.0-37.0); Mean Corpuscular Volume 85.4 fL (80.0-94.0); Nucleated Red Blood Cells % 0 % (-); Platelet Count 168 10^3/uL (130-400); Red Cell Dist. Width 14.6 % (11.5-14.5)
[2025-07-07 11:53] LABS: INR 1.18; PT 15.6 Sec (11.4-14.6)
[2025-07-07 16:18] LABS: Blood Urea Nitrogen 21 mg/dl (9-20); Calcium 9.0 mg/dl (8.4-10.2); Carbon Dioxide 28 mmol/L (22-30); Chloride 104 mmol/L (98-107); Glucose 83 mg/dl (70-99); Potassium 3.6 mmol/L (3.5-5.1); Sodium 136 mmol/L (135-145); eGFR > 60.00
== END ==
LOC: REG 09:54
PROVIDERS: FAMILY PHYSICIAN Internal Medicine
DX: I42.2 Other hypertrophic cardiomyopathy (principal); D50.0 Iron deficiency anemia secondary to blood loss (chronic)
CPT/HCPCS: 36415; 80048; 85025; 85610